=== PATIENT | male | born 1955 | race Caucasian/White ===

== ENCOUNTER 2020-02-10 14:29 | Emergency (ER) | payer BC, OTHER ==
[2020-02-10] MEDS ORDERED: NA CHLORIDE 0.9% 500 ML ONE (15:05)
[2020-02-10] MEDS ORDERED: MORPHINE 4 MG/ML SYR ONE (15:05)
[2020-02-10] MEDS ORDERED: ONDANSETRON 4 MG/2 ML VIAL ONE (15:05)
[2020-02-10 15:26] LABS: Absolute Lymphocytes (CBC) 0.9 K/uL (0.7-4.9); Basophils % 0.8 % (0-1.3); Hematocrit 42.7 % (39.6-49.0); Lymphocytes % 8.6 % (15.3-44.8)
[2020-02-10] MEDS ORDERED: PROMETHAZINE INJ 25 MG/ML AMP ONE (15:26)
[2020-02-10 15:49] LABS: ALT/SGPT 40 U/L (12-78); AST/SGOT 16 U/L (15-37); Albumin 4.3 g/dL (3.4-5.0); Alkaline Phosphatase 94 U/L (45-117); BUN Blood Urea Nitrogen 17 mg/dL (7-18); Bicarbonate 27 mmol/L (21-32); Bilirubin Direct 0.1 mg/dL (0-0.2); Bilirubin Total 0.4 mg/dL (0.2-1.0); Glucose Level 144 mg/dL (74-106); Lipase 52 U/L (73-393); Potassium 4.2 mmol/L (3.5-5.1); Protein, Total 8.8 g/dL (6.4-8.2); Sodium Level 139 mmol/L (136-145)
--- NOTE | 2020-02-10 16:23 | RAD REPORT ---
EXAM DESCRIPTION: CT - Stone Protocol - 02/10/2020 4:08 pm CLINICAL HISTORY: right flank pain COMPARISON: CT ABD PELVIS W CONTRAST dated 09/05/2014 TECHNIQUE: Axial [address] imaging of the abdomen and pelvis was performed without IV contrast. No IV contrast was given because of allergy, abnormal renal function, patient refusal or physician re quest. No oral contrast. All CT scans are performed using dose optimization technique as appropriate and may include automated exposure control or mA/KV adjustment according to patient size. FINDINGS: Motion degradation accentuates lung base interstitial pattern. No mass or consolidations s een. Cardiomegaly is present without pericardial effusion. The liver, spleen and pancreas show no suspicious findings on non-contrast imaging. Cholecystectomy c lips are present. No biliary tree dilatation. No hydronephrosis or suspicious renal mass. No significant adrenal finding. Isodense renal masses an d pyelonephritis cannot be excluded in the absence of IV contrast. The urinary bladder is without sig nificant finding. No significant prostate gland abnormality. No stomach or small bowel acute finding. Moderate stool volume present throughout the colon. Left-nancy ed diverticulosis present without diverticulitis. Small hiatal hernia present. No free air, free fluid or inflammatory stranding. No mass or bulky lymphadenopathy. Bilateral ingu inal hernias are present very minimal on the right and small on the left. Since 2014 patient has had repair of the periumbilical hernia. No herniation of bowel. No suspicious finding at the repair site. Disc and bony degenerative changes are present. No acute finding. IMPRESSION: Moderate stool volume throughout the colon with prominent left-sided diverticulosis. No diverticulitis or acute GI finding. No acute finding identifiable. Periumbilical hernia repair changes with no acute or worrisome finding at the repair site. Full assessment is limited is the absence of IV contrast.
[2020-02-10 16:29] LABS: Platelet Estimate ADEQ; White Blood Cell Scan OK (OK)
[2020-02-10 16:30] LABS: Blood Morphology Comment NOT SEEN (NOT SEEN)
[2020-02-10 16:50] LABS: Urine Blood TRACE (NEG); Urine Glucose NEGATIVE (NEG); Urine Protein 1+ (NEG); Urine Specific Gravity 1.025 (1.005-1.030); Urine pH 6.5 (5.0-7.0)
[2020-02-10 17:21] LABS: Urine Bacteria <20 /HPF (NONE SEEN); Urine Culture Reflex Order NOT NEEDED; Urine Mucus 2+ /HPF (NONE SEEN)
--- NOTE | 2020-02-10 17:32 | ER ---
Nurse's Notes [facility] Name: Lawrence Bustos Age: 64 yrs Sex: Male : 1955 Arrival Date: 02/10/2020 Time: 14:32 Bed 20 Private MD: Golden Melendez Diagnosis: Lower abdominal pain, unspecified;Nausea and vomiting Presentation: 02/09 14:42 Chief complaint: Patient states: Abdominal pain with N/V since 11am today. No known ll1 fever. Coronavirus screen: Client denies travel out of the [place] in the last 14 days. At this time, the client does not indicate any symptoms associated with coronavirus-19. Ebola Screen: Patient denies travel to an Ebola-affected area in the 21 days before illness onset. Initial Sepsis Screen: Does the patient meet any 2 criteria? No. Patient's initial sepsis screen is negative. Risk Assessment: Do you want to hurt yourself or someone else? Patient reports no desire to harm self or others. Onset of symptoms was February 10, 2020. 14:42 Method Of Arrival: Wheelchair ll1 14:42 Acuity: EDDIE 3 ll1 Historical: - Allergies: 14:43 No Known Drug Allergies; ll1 - Home Meds: 15:37 Metformin Oral [Active]; jl7 - PMHx: 15:37 Diabetes - NIDDM; jl7 - PSHx: 14:43 Hernia repair; ll1 - Immunization history:: Flu vaccine is up to date. - Social history:: Smoking status: Patient denies any tobacco usage or history of. Screenin:25 Abuse screen: Denies threats or abuse. Denies injuries from another. Nutritional jl7 screening: No deficits noted. Tuberculosis screening: No symptoms or risk factors identified. Fall Risk IV access (20 points). Total Chinchilla Fall Scale indicates No Risk (0-24 pts). Assessment: 15:00 General: Appears in no apparent distress. uncomfortable, ill, Behavior is calm, jl7 cooperative, appropriate for age. Pain: Complains of pain in right lower quadrant Pain radiates to pelvis Pain currently is 10 out of 10 on a pain scale. Pain began 4 hours ago. Is continuous. Neuro: Level of Consciousness is awake, alert, obeys commands, Oriented to person, place, time, situation. Cardiovascular: Denies chest pain. Respiratory: Airway is patent Respiratory effort is even, unlabored, Respiratory pattern is regular, symmetrical. GI: Abdomen is round non-distended, Bowel sounds present X 4 quads. Abd is soft Reports nausea, vomiting, Patient currently denies diarrhea. Derm: Skin is diaphoretic, Skin is normal, Skin temperature is cool. 16:00 Reassessment: Patient appears in no apparent distress at this time. Patient and/or jl7 family updated on plan of care and expected duration. Pain level reassessed. Patient is alert, oriented x 3, equal unlabored respirations, skin warm/dry/pink. Patient states feeling better. 17:00 Reassessment: Patient appears in no apparent distress at this time. No changes from jl7 previously documented assessment. Patient and/or family updated on plan of care and expected duration. Pain level reassessed. Patient is alert, oriented x 3, equal unlabored respirations, skin warm/dry/pink. Vital Signs: 14:42 BP 174 / 86; Pulse 66; Resp 18; Temp 98.1; Pulse Ox 96% on R/A; Pain 10/10; ll1 15:39 BP 156 / 88; Pulse 71; Resp 17 S; Pulse Ox 91% on R/A; jl7 16:32 BP 157 / 77; Pulse 61; Resp 18 S; Pulse Ox 96% on R/A; jl7 ED Course: 14:32 Patient arrived in ED. ag5 14:32 Golden Melendez MD is Private Physician. ag5 14:43 Triage completed. ll1 14:43 Arm band placed on Patient placed in an exam room, on a stretcher. ll1 14:46 Carson Miramontes PA is PHCP. cp 14:46 Josafat Lei MD is Attending Physician. cp 14:51 Kathleen Watson RN is Primary Nurse. jl7 15:00 Patient has correct armband on for positive identification. Placed in gown. Bed in low jl7 position. Call light in reach. Side rails up X 1. Pulse ox on. NIBP on. Warm blanket given. 15:05 Missed attempt(s): 20 gauge in right antecubital area. Bleeding controlled, band aid jl7 applied, catheter tip intact. 15:10 Missed attempt(s): 20 gauge in left antecubital area. Bleeding controlled, band aid jl7 applied, catheter tip intact. 15:15 Initial lab(s) drawn, by me, sent to lab. Inserted saline lock: 22 gauge in left hand, jl7 using aseptic technique. Blood collected. 16:08 CT Stone Protocol In Process Unspecified. EDMS 17:48 No provider procedures requiring assistance completed. IV discontinued, intact, jl7 bleeding controlled, No redness/swelling at site. Pressure dressing applied. Administered Medications: 15:10 Drug: NS 0.9% 500 ml Route: IV; Rate: bolus; Site: left hand; jl7 16:00 Follow up: Response: No adverse reaction; IV Status: Completed infusion; IV Intake: jl7 5000ml 15:10 Drug: Zofran (Ondansetron) 4 mg Route: IVP; Site: left hand; jl7 15:20 Follow up: Response: No adverse reaction; Nausea is decreased jl7 15:10 Drug: morphine 4 mg Route: IVP; Site: left hand; jl7 15:36 Follow up: Response: No adverse reaction; Pain is decreased jl7 15:23 Drug: Phenergan 25 mg Route: IVP; Site: left hand; jl7 15:45 Follow up: Response: No adverse reaction; Nausea is decreased jl7 Intake: 16:00 IV: 5000ml; Total: 5000ml. jl7 Outcome: 17:32 Discharge ordered by . kb 17:48 Discharged to home ambulatory. jl7 17:48 Condition: stable 17:48 Discharge instructions given to patient, Instructed on discharge instructions, follow up and referral plans. medication usage, Demonstrated understanding of instructions, follow-up care, medications, Prescriptions given X 2. 17:49 Patient left the ED. jl7 Signatures: Dispatcher [employer] EDMS Khloe Evans, PLANT DIRECTOR-C PLANT DIRECTOR-Ckb Carson Miramontes PA PA cp Leal, Jahala RN RN jl7 Lilo Granado ag5 Karol Chand, RN RN ll1
--- NOTE | 2020-02-10 17:32 | EDPHYS ---
Physician Documentation [facility] Name: Lawrence Bustos Age: 64 yrs Sex: Male : 1955 Arrival Date: 02/10/2020 Time: 14:32 Bed 20 Private MD: Golden Melendez ED Physician Josafat Lei HPI: 02/09 15:00 This 64 yrs old Male presents to ER via Wheelchair with complaints of cp Abdominal Pain, Vomiting. 15:00 The patient presents with abdominal pain right lower quadrant. Onset: The cp symptoms/episode began/occurred today, at 11:00. The symptoms radiate to right groin. Associated signs and symptoms: Pertinent positives: nausea, vomiting, Pertinent negatives: blood in stools, chest pain, constipation, diarrhea, fever. Severity of pain: in the emergency department the pain is unchanged despite home interventions. Historical: - Allergies: 14:43 No Known Drug Allergies; ll1 - Home Meds: 15:37 Metformin Oral [Active]; jl7 - PMHx: 15:37 Diabetes - NIDDM; jl7 - PSHx: 14:43 Hernia repair; ll1 - Immunization history:: Flu vaccine is up to date. - Social history:: Smoking status: Patient denies any tobacco usage or history of. ROS: 15:05 Constitutional: Negative for body aches, chills, fever, poor PO intake. cp 15:05 Eyes: Negative for injury, pain, redness, and discharge. cp 15:05 Cardiovascular: Negative for chest pain. 15:05 Respiratory: Negative for cough, shortness of breath, wheezing. 15:05 Abdomen/GI: Positive for abdominal pain, nausea and vomiting, Negative for diarrhea, constipation, anorexia, black/tarry stool, rectal bleeding. 15:05 Back: Negative for pain at rest, radiated pain. 15:05 : Negative for urinary symptoms. 15:05 Skin: Negative for rash. 15:05 Neuro: Negative for dizziness, weakness. 15:05 All other systems are negative. Exam: 15:10 Constitutional: The patient appears in no acute distress, alert, awake, non-toxic, well cp developed, well nourished, obese. 15:10 Head/Face: Normocephalic, atraumatic. cp 15:10 Eyes: Periorbital structures: appear normal, Conjunctiva: normal, no exudate, no injection, Sclera: no appreciated abnormality, Lids and lashes: appear normal, bilaterally. 15:10 ENT: External ear(s): are unremarkable, Nose: is normal, Mouth: Lips: moist, Oral mucosa: moist, Posterior pharynx: Airway: no evidence of obstruction, patent. 15:10 Chest/axilla: Inspection: normal, Palpation: is normal, no crepitus, no tenderness. 15:10 Cardiovascular: Rate: normal, Rhythm: regular. 15:10 Respiratory: the patient does not display signs of respiratory distress, Respirations: normal, no use of accessory muscles, no retractions, labored breathing, is not present, Breath sounds: are clear throughout, no decreased breath sounds. 15:10 Abdomen/GI: Inspection: obese Bowel sounds: active, all quadrants, Palpation: soft, in all quadrants, mild abdominal tenderness, in the right lower quadrant, rebound tenderness, is not appreciated, voluntary guarding, is not appreciated, involuntary guarding, is not appreciated. 15:10 Back: pain, is absent, ROM is normal. 15:10 Skin: cellulitis, is not appreciated, no rash present. 15:10 Neuro: Orientation: to person, place \T\ time. Mentation: is normal. Vital Signs: 14:42 BP 174 / 86; Pulse 66; Resp 18; Temp 98.1; Pulse Ox 96% on R/A; Pain 10/10; ll1 15:39 BP 156 / 88; Pulse 71; Resp 17 S; Pulse Ox 91% on R/A; jl7 16:32 BP 157 / 77; Pulse 61; Resp 18 S; Pulse Ox 96% on R/A; jl7 MDM: 14:47 Patient medically screened. cp 15:00 Differential diagnosis: appendicitis, bowel obstruction, cholecystitis, Cholelithiasis, cp diverticulitis, gastritis, non-specific abd pain, pancreatitis, Pyelonephritis, Testicular Torsion, Ureterolithiasis, urinary tract infection. 16:31 Data reviewed: vital signs, nurses notes, lab test result(s), radiologic studies, CT cp scan. ED course: Spoke with radiologist, DR Monterroso, CT scan of abdomen does not show signs of appendicitis. 02/09 14:49 Order name: Basic Metabolic Panel; Complete Time: 15:57 cp 02/09 15:57 Interpretation: Normal except: GLUC 144. cp 02/09 14:49 Order name: CBC with Diff; Complete Time: 16:30 cp 02/09 15:57 Interpretation: Normal except: LAKSHMI% 87.6; LYM% 8.6; MN% 2.8; NEUT A 9.5. cp 02/09 14:49 Order name: Hepatic Function; Complete Time: 15:57 cp 02/09 15:58 Interpretation: Normal except: TP 8.8; GLOB 4.5; A/G 1.0. cp 02/09 14:49 Order name: Lipase; Complete Time: 15:57 cp 02/09 14:49 Order name: Urine Microscopic Only; Complete Time: 17:32 cp 02/09 16:30 Order name: CBC Smear Scan; Complete Time: 16:30 EDMS 02/09 14:49 Order name: IV Saline Lock; Complete Time: 15:36 cp 02/09 14:49 Order name: Labs collected and sent; Complete Time: 15:36 cp 02/09 15:22 Order name: CT Stone Protocol; Complete Time: 16:30 cp 02/09 16:43 Order name: Urine Dipstick--Ancillary (enter results); Complete Time: 16:55 em1 02/09 14:49 Order name: Urine Dipstick-Ancillary (obtain specimen); Complete Time: 16:42 cp 02/09 16:31 Order name: PO challenge; Complete Time: 17:31 cp Administered Medications: 15:10 Drug: NS 0.9% 500 ml Route: IV; Rate: bolus; Site: left hand; jl7 16:00 Follow up: Response: No adverse reaction; IV Status: Completed infusion; IV Intake: jl7 5000ml 15:10 Drug: Zofran (Ondansetron) 4 mg Route: IVP; Site: left hand; jl7 15:20 Follow up: Response: No adverse reaction; Nausea is decreased jl7 15:10 Drug: morphine 4 mg Route: IVP; Site: left hand; jl7 15:36 Follow up: Response: No adverse reaction; Pain is decreased jl7 15:23 Drug: Phenergan 25 mg Route: IVP; Site: left hand; jl7 15:45 Follow up: Response: No adverse reaction; Nausea is decreased jl7 Disposition: 18:47 Co-signature as Attending Physician, Josafat Eli MD. rn Disposition: 02/10/20 17:32 Discharged to Home. Impression: Lower abdominal pain, unspecified, Nausea and vomiting. - Condition is Stable. - Discharge Instructions: Abdominal Pain, Adult, Nausea and Vomiting, Adult. - Prescriptions for Bentyl 20 mg Oral Tablet - take 1 tablet by ORAL route every 6 hours As needed; 20 tablet. promethazine 25 mg Oral Tablet - take 1 tablet by ORAL route every 6 hours As needed; 20 tablet. - Medication Reconciliation Form, Thank You Letter, Antibiotic Education, Prescription Opioid Use form. - Follow up: Private Physician; When: 1 - 2 days; Reason: Worsening of condition. - Problem is new. - Symptoms have improved. Signatures: Dispatcher [employer] EDMS Khloe Evans, MARINE ELECTRONICS TECHNICIAN-C MARINE ELECTRONICS TECHNICIAN-Ckb Josafat Lei MD MD rn Carson Miramontes PA PA cp Leal, Jahala RN RN jl7 Karol Chand RN RN ll1 Corrections: (The following items were deleted from the chart) 17:49 17:32 02/10/2020 17:32 Discharged to Home. Impression: Lower abdominal pain, jl7 unspecified; Nausea and vomiting. Condition is Stable. Discharge Instructions: Abdominal Pain, Adult, Nausea and Vomiting, Adult. Prescriptions for Bentyl 20 mg Oral Tablet - take 1 tablet by ORAL route every 6 hours As needed; 20 tablet, promethazine 25 mg Oral Tablet - take 1 tablet by ORAL route every 6 hours As needed; 20 tablet. and Forms are Medication Reconciliation Form, Thank You Letter, Antibiotic Education, Prescription Opioid Use. Follow up: Private Physician; When: 1 - 2 days; Reason: Worsening of condition. Problem is new. Symptoms have improved. kb
[2020-02-10 21:10] VITALS: TEMP 98.1
[2020-02-10 21:13] VITALS: BP 157/77; O2SAT 96
== END 2020-02-10 17:49 | disposition home or self-care (01) ==
LOC: ER 14:29
DX: R11.2 Nausea with vomiting, unspecified (principal); E11.9 Type 2 diabetes mellitus without complications
CPT/HCPCS: 96361; 85025; 80048; 36415; 80076; 83690; 76377; 74176; 96375; 96374; 99284; J2550; J7040; J2405; 81003; 81015

== ENCOUNTER 2021-03-12 23:17 | Emergency (ER) | payer OTHER ==
[2021-03-13] MEDS ORDERED: FLUORESCEIN SODIUM 1 MG/WRAP ONE (00:04)
[2021-03-13] MEDS ORDERED: TETRACAINE HCL 0.5% 4ML OPTH ONE (00:05)
--- NOTE | 2021-03-13 00:59 | EDPHYS ---
Physician Documentation [facility] Name: Lawrence Bustos Age: 65 yrs Sex: Male : 1955 Arrival Date: 03/12/2021 Time: 23:21 Bed 26 Private MD: ED Physician Carson Calvo HPI: 03/13 00:51 This 65 yrs old Male presents to ER via Ambulatory with complaints of Foreign last Body In Eye. 00:51 The patient sustained an abrasion, a burn, None. Onset: The symptoms/episode last began/occurred just prior to arrival. Duration: the symptoms are continuous. Aggravated by closing eye, opening eye, pressure, rubbing, Alleviated by nothing. Associated signs and symptoms: Pertinent positives: None. Pertinent negatives: None. Patient does not utilize any form of vision correction. Severity of symptoms: At their worst the symptoms were mild moderate in the emergency department the symptoms are unchanged. The patient has not experienced similar symptoms in the past. Historical: - Allergies: 03/12 23:43 No Known Allergies; lp1 - Home Meds: 23:43 None [Active]; lp1 - PMHx: 23:43 Diabetes - NIDDM; lp1 - PSHx: 23:43 Cholecystectomy; lp1 - Immunization history:: Adult Immunizations up to date. - Social history:: Smoking status: Patient denies any tobacco usage or history of. - Family history:: not pertinent. ROS: 03/13 00:51 Constitutional: Negative for fever, chills, and weight loss, ENT: Negative for injury, last pain, and discharge, Neck: Negative for injury, pain, and swelling, Cardiovascular: Negative for chest pain, palpitations, and edema, Respiratory: Negative for shortness of breath, cough, wheezing, and pleuritic chest pain, Abdomen/GI: Negative for abdominal pain, nausea, vomiting, diarrhea, and constipation, Back: Negative for injury and pain, : Negative for injury, bleeding, discharge, and swelling, MS/Extremity: Negative for injury and deformity, Skin: Negative for injury, rash, and discoloration, Neuro: Negative for headache, weakness, numbness, tingling, and seizure, Psych: Negative for depression, anxiety, suicide ideation, homicidal ideation, and hallucinations, Allergy/Immunology: Negative for hives, rash, and allergies, Endocrine: Negative for neck swelling, polydipsia, polyuria, polyphagia, and marked weight changes, Hematologic/Lymphatic: Negative for swollen nodes, abnormal bleeding, and unusual bruising. Eyes: Positive for foreign body sensation, pain, photophobia. Exam: 00:51 Constitutional: This is a well developed, well nourished patient who is awake, alert, last and in no acute distress. Head/Face: Normocephalic, atraumatic. ENT: Nares patent. No nasal discharge, no septal abnormalities noted. Tympanic membranes are normal and external auditory canals are clear. Oropharynx with no redness, swelling, or masses, exudates, or evidence of obstruction, uvula midline. Mucous membranes moist. Neck: Trachea midline, no thyromegaly or masses palpated, and no cervical lymphadenopathy. Supple, full range of motion without nuchal rigidity, or vertebral point tenderness. No Meningismus. Chest/axilla: Normal chest wall appearance and motion. Nontender with no deformity. No lesions are appreciated. Cardiovascular: Regular rate and rhythm with a normal S1 and S2. No gallops, murmurs, or rubs. Normal PMI, no JVD. No pulse deficits. Respiratory: Lungs have equal breath sounds bilaterally, clear to auscultation and percussion. No rales, rhonchi or wheezes noted. No increased work of breathing, no retractions or nasal flaring. Abdomen/GI: Soft, non-tender, with normal bowel sounds. No distension or tympany. No guarding or rebound. No evidence of tenderness throughout. Back: No spinal tenderness. No costovertebral tenderness. Full range of motion. Male : Normal genitalia with no discharge or lesions. Skin: Warm, dry with normal turgor. Normal color with no rashes, no lesions, and no evidence of cellulitis. MS/ Extremity: Pulses equal, no cyanosis. Neurovascular intact. Full, normal range of motion. Neuro: Awake and alert, GCS 15, oriented to person, place, time, and situation. Cranial nerves II-XII grossly intact. Motor strength 5/5 in all extremities. Sensory grossly intact. Cerebellar exam normal. Normal gait. Psych: Awake, alert, with orientation to person, place and time. Behavior, mood, and affect are within normal limits. 00:51 Eyes: Pupils: no acute changes, equal, round, and reactive to light and accomodation, Extraocular movements: intact throughout, Conjunctiva: normal, no chemosis, no excoriation, no exudate, no injection, no subconjunctival hemorrhage no abnormal tearing, Corneas: foreign body, on the right, at 6 o'clock, a fluorescein strip employed to appreciate the findings, Sclera: injected, Anterior chamber: normal, no acute changes, Lids and lashes: appear normal, no acute changes, Visual vega: are intact, no acute changes. Vital Signs: 03/12 23:41 BP 149 / 74; Pulse 78; Resp 18; Temp 97.5(TE); Pulse Ox 99% on R/A; Weight 113.4 kg lp1 (R); Height 6 ft. 0 in. (182.88 cm); Pain 8/10; 03/13 00:31 BP 142 / 75; Pulse 75; Resp 18; Pulse Ox 99% on R/A; df1 03/12 23:41 Body Mass Index 33.91 (113.40 kg, 182.88 cm) lp1 Visual Acuity: 00:14 Left Eye Visual acuity 20/50, Pupil size 3 mm, Normal, React To Light, Reactive To df1 Accomodation; Right Eye Visual acuity 20/50, Pupil size 3 mm, Normal, React To Light, Reactive To Accomodation; Both Eyes Visual acuity 20/50; Without Lenses; MDM: 03/12 23:33 Patient medically screened. [facility] 03/12 23:34 Order name: Eye Tray; Complete Time: 23:42 [facility] 03/13 00:51 Order name: Misc. Order: patch to right; Complete Time: 00:57 [facility] Administered Medications: 03/13 00:56 Drug: Tobramycin Ointment (0.3 %) 1 application Route: Ophthalmic; Site: right eye; df1 00:57 Drug: Tetracaine Drops 0.5 % 1 drops Route: Ophthalmic; Site: right eye; df1 01:01 Drug: [place] (HYDROcodone-acetaminophen) 10 mg-325 mg 1 tabs {Note: Per provider [place] df1 to be taken at home..} Route: PO; 01:15 Drug: Tetanus-Diphtheria Toxoid Adult 0.5 ml {Customer Service Trainer: [employer]. Exp: df1 10/15/2022. Lot #: [id number]. } Route: IM; Site: left deltoid; Disposition Summary: 03/13/21 00:59 Discharge Ordered Location: Home last Problem: new last Symptoms: have improved last Condition: Stable last Diagnosis - Foreign body in cornea, right eye - removed last Followup: last - With: Ar Fong MD - When: Today - Reason: Recheck today's complaints, Continuance of care, Re-evaluation by your physician Discharge Instructions: - Discharge Summary Sheet last - Corneal Abrasion last - Eye Foreign Body last - Corneal Abrasion, [id number] last - Eye Foreign Body, [id number] last Forms: - Medication Reconciliation Form last - Thank You Letter last - Antibiotic Education last - Prescription Opioid Use last Prescriptions: - Tobrex 0.3 % Ophthalmic ointment - apply 1 inch ribbon by OPHTHALMIC route 4 times per day; 3.5 gram; Refills: 0, last Product Selection Permitted Signatures: Carson Calvo MD MD cha Pena, Laura RN RN lp1 Bette Luo df1
--- NOTE | 2021-03-13 00:59 | ER ---
Nurse's Notes [facility] Name: Lawrence Bustos Age: 65 yrs Sex: Male : 1955 Arrival Date: 03/12/2021 Time: 23:21 Bed 26 Private MD: Diagnosis: Foreign body in cornea, right eye-removed Presentation: 03/12 23:41 Chief complaint: Patient states: Right eye pain, redness for the last couple hours; lp1 reports painting in garage earlier today, may have been exposed to dust. Coronavirus screen: At this time, the client does not indicate any symptoms associated with coronavirus-19. Ebola Screen: No symptoms or risks identified at this time. Initial Sepsis Screen: Does the patient meet any 2 criteria? No. Patient's initial sepsis screen is negative. Does the patient have a suspected source of infection? No. Patient's initial sepsis screen is negative. Risk Assessment: Do you want to hurt yourself or someone else? Patient reports no desire to harm self or others. Onset of symptoms was March 12, 2021. 23:41 Method Of Arrival: Ambulatory lp1 23:41 Acuity: EDDIE 4 lp1 Historical: - Allergies: 23:43 No Known Allergies; lp1 - Home Meds: 23:43 None [Active]; lp1 - PMHx: 23:43 Diabetes - NIDDM; lp1 - PSHx: 23:43 Cholecystectomy; lp1 - Immunization history:: Adult Immunizations up to date. - Social history:: Smoking status: Patient denies any tobacco usage or history of. - Family history:: not pertinent. Screenin:43 Abuse screen: Denies threats or abuse. Denies injuries from another. Nutritional lp1 screening: No deficits noted. Tuberculosis screening: No symptoms or risk factors identified. Fall Risk None identified. Assessment: 03/13 00:24 General: Appears in no apparent distress. Behavior is calm, cooperative. Pain: df1 Complains of pain in right eye. Neuro: No deficits noted. Cardiovascular: No deficits noted. Respiratory: No deficits noted. GI: No deficits noted. : No deficits noted. EENT: No deficits noted. Derm: No deficits noted. Musculoskeletal: No deficits noted. Vital Signs: 03/12 23:41 BP 149 / 74; Pulse 78; Resp 18; Temp 97.5(TE); Pulse Ox 99% on R/A; Weight 113.4 kg lp1 (R); Height 6 ft. 0 in. (182.88 cm); Pain 8/10; 03/13 00:31 BP 142 / 75; Pulse 75; Resp 18; Pulse Ox 99% on R/A; df1 03/12 23:41 Body Mass Index 33.91 (113.40 kg, 182.88 cm) lp1 Visual Acuity: 00:14 Left Eye Visual acuity 20/50, Pupil size 3 mm, Normal, React To Light, Reactive To df1 Accomodation; Right Eye Visual acuity 20/50, Pupil size 3 mm, Normal, React To Light, Reactive To Accomodation; Both Eyes Visual acuity 20/50; Without Lenses; ED Course: 03/12 23:21 Patient arrived in ED. wm 23:33 Carson Calvo MD is Attending Physician. last 23:42 Bette Luo is Primary Nurse. df1 23:42 Triage completed. lp1 23:42 Arm band placed on. lp1 03/13 00:11 Patient has correct armband on for positive identification. Bed in low position. Call df1 light in reach. 00:32 Assist provider with eye exam of right eye. df1 00:55 Assist provider with eye exam using slit lamp, Performed by Carson Calvo MD Dressed df1 with eye patch Patient tolerated well. 00:58 Ar Fong MD is Referral Physician. last 01:20 Patient did not have IV access during this emergency room visit. df1 Administered Medications: 00:56 Drug: Tobramycin Ointment (0.3 %) 1 application Route: Ophthalmic; Site: right eye; df1 00:57 Drug: Tetracaine Drops 0.5 % 1 drops Route: Ophthalmic; Site: right eye; df1 01:01 Drug: [place] (HYDROcodone-acetaminophen) 10 mg-325 mg 1 tabs {Note: Per provider [place] df1 to be taken at home..} Route: PO; 01:15 Drug: Tetanus-Diphtheria Toxoid Adult 0.5 ml {Manager Concrete: [facility]. Exp: df1 10/15/2022. Lot #: [id number]. } Route: IM; Site: left deltoid; Outcome: 00:59 Discharge ordered by . last 01:20 Discharged to home ambulatory. df1 01:20 Condition: good 01:20 Discharge instructions given to patient, Instructed on discharge instructions, follow up and referral plans. medication usage, Demonstrated understanding of instructions, follow-up care, medications, Prescriptions given X 1. 01:20 Patient left the ED. df1 Signatures: Carson Calvo MD MD cha Pena, Laura, RN RN lp1 Ira Moore Dawn df1
[2021-03-13] MEDS ORDERED: TOBRAMYCIN SULF 0.3% OPTH OINT ONE (01:08)
[2021-03-13] MEDS ORDERED: CYCLOPENTOLATE 2% OPTH 2 ML ONE (01:08)
[2021-03-13] MEDS ORDERED: HYDROCODONE/APAP 5/325 MG TAB ONE (01:24)
[2021-03-13] MEDS ORDERED: HYDROCODONE/APAP 10/325 TAB ONE (01:29)
[2021-03-13] MEDS ORDERED: TETANUS & DIPHTHERIA TOX,ADULT 0.5 ML VIAL ONE (01:29)
[2021-03-13 01:33] VITALS: TEMP 97.5; O2SAT 99
[2021-03-13 01:34] VITALS: BP 142/75
== END 2021-03-13 01:20 | disposition home or self-care (01) ==
LOC: ER 23:17
PROC: 08C8XZZ Extirpation of Matter from Right Cornea, External Approach (ICD-10-PCS; principal; 2021-03-12)
DX: T15.01XA Foreign body in cornea, right eye, initial encounter (principal); E11.9 Type 2 diabetes mellitus without complications; Z90.49 Acquired absence of other specified parts of digestive tract; Z23 Encounter for immunization
CPT/HCPCS: 90471; 90714; 99283

== ENCOUNTER 2021-04-01 17:51 | Emergency (ER) | payer OTHER ==
[2021-04-01] MEDS ORDERED: GLUCAGON 1 MG/VIAL ONE ×2 (18:30→20:34)
[2021-04-01] MEDS ORDERED: WATER FOR INJ,STERILE 10 ML ONE (18:30)
--- NOTE | 2021-04-01 19:51 | RAD REPORT ---
EXAM DESCRIPTION: RAD - Neck Soft Tissue - 04/01/2021 6:45 pm CLINICAL HISTORY: FB, not otherwise specified COMPARISON: None. TECHNIQUE: Single lateral soft tissue neck exam performed. FINDINGS: No prevertebral soft tissue thickening. No foreign body or abnormal air density. Epiglotti s is normal. Tonsillar and adenoid tissue within normal limits as well. Advanced mid and lower cerv ical spine degenerative change spanning C4-C7. The disc spaces are narrowed with endplate spurring ch anges. Normal thyroid cartilage calcifications are present. IMPRESSION: No foreign body is distinguishable from the above detailed anatomic structures.
--- NOTE | 2021-04-01 20:46 | EDPHYS ---
Physician Documentation [facility] Name: Lawrence Bustos Age: 65 yrs Sex: Male : 1955 Arrival Date: 04/01/2021 Time: 17:52 Bed 4 Private MD: ED Physician Alma Devlin HPI: 04/01 20:51 This 65 yrs old Male presents to ER via Ambulatory with complaints of Foreign kb Body In Throat - candy. 20:51 The patient or guardian reports the patient has a suspected foreign body, that has been kb ingested. The reported likely foreign body is "sticky candy". Onset: The symptoms/episode began/occurred 1.5 hour(s) ago. Current symptoms: foreign body sensation. Treatment Prior to Arrival: none. The patient has not experienced similar symptoms in the past. The patient has not recently seen a physician. Pt states he ate some sticky candy and feels like it is stuck in esophagus. States he has tried drinking fluids to push it down, but he it comes back up. Historical: - Allergies: 18:03 No Known Allergies; aa5 - PMHx: 18:03 Diabetes - NIDDM; aa5 - PSHx: 18:03 Cholecystectomy; aa5 - Immunization history:: Client reports receiving the 2nd dose of the Covid vaccine. - Social history:: Smoking status: Patient denies any tobacco usage or history of. ROS: 20:51 Constitutional: Negative for fever, chills, and weight loss. kb 20:51 ENT: Positive for foreign body sensation. 20:51 All other systems are negative. Exam: 20:51 Constitutional: This is a well developed, well nourished patient who is awake, alert, kb and in no acute distress. Head/Face: Normocephalic, atraumatic. ENT: Moist Mucous membranes Cardiovascular: Regular rate and rhythm with a normal S1 and S2. No gallops, murmurs, or rubs. No pulse deficits. Respiratory: Respirations even and unlabored. No increased work of breathing, no retractions or nasal flaring. Skin: Warm, dry with normal turgor. Normal color. MS/ Extremity: Pulses equal, no cyanosis. Neurovascular intact. Full, normal range of motion. Neuro: Awake and alert, GCS 15, oriented to person, place, time, and situation. Moves all extremities. Normal gait. Psych: Awake, alert, with orientation to person, place and time. Behavior, mood, and affect are within normal limits. Vital Signs: 17:54 BP 168 / 87; Pulse 78; Resp 20 S; Temp 98.0(TE); Pulse Ox 98% on R/A; Weight 117.93 kg aa5 (R); Height 6 ft. 1 in. (185.42 cm) (R); Pain 0/10; 18:42 BP 120 / 93; Pulse 80; Resp 16; Pulse Ox 99% on R/A; ap3 19:30 BP 171 / 83; Pulse 70; Resp 19; Temp 97.9; Pulse Ox 96% on R/A; Pain 2/10; dc2 21:09 BP 150 / 80; Pulse 72; Resp 18; Pulse Ox 96% on R/A; Pain 0/10; df1 17:54 Body Mass Index 34.30 (117.93 kg, 185.42 cm) aa5 MDM: 17:55 Patient medically screened. kb 20:50 Data reviewed: vital signs, nurses notes. Data interpreted: Pulse oximetry: on room air kb is 96 %. Interpretation: normal. 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 ED course: Pt states he believes the candy is moving down. Pt is now able to tolerate PO intake and would like to go home. Resp even and unlabored. Pt denies shortness of breath. 04/01 18:01 Order name: Neck Soft Tissue XRAY; Complete Time: 19:57 kb 04/01 18:00 Order name: IV Start; Complete Time: 18:42 kb Administered Medications: 18:42 Drug: Glucagon 1 mg Route: IVP; Site: right forearm; ap3 19:30 Follow up: Response: Pain is unchanged, physician notified dc2 20:11 Drug: GlucaGen (glucagon) 1 mg Route: IVP; Site: right antecubital; dc2 20:28 Follow up: Response: Marked relief of symptoms dc2 Disposition Summary: 04/01/21 20:45 Discharge Ordered Location: Home kb Condition: Stable kb Diagnosis - Foreign body in esophagus kb Followup: kb - With: Emergency Department - When: As needed - Reason: Worsening of condition Followup: kb - With: Private Physician - When: 2 - 3 days - Reason: Recheck today's complaints, Continuance of care, Re-evaluation by your physician Discharge Instructions: - Discharge Summary Sheet kb - Swallowed Foreign Body, Adult, [id number] kb Forms: - Medication Reconciliation Form kb - Thank You Letter kb - Antibiotic Education kb - Prescription Opioid Use kb Addendum: 04/04/2021 23:01 Co-signature as Attending Physician, Alma Devlin MD PA/STATUE MAKER's history reviewed, m a2 patient interviewed, and examined. I agree with assessment and care plan and confirm the diagnosis (es) above. Signatures: Dispatcher [employer] EDMS Khloe Evans, CORPORATE STRATEGY ASSOCIATE-C CORPORATE STRATEGY ASSOCIATE-Beckb Atiya Simmons, RN RN aa5 Alma Devlin MD MD ma2 Jennifer Gates RN RN ap3 Yana Luis RN RN dc2
--- NOTE | 2021-04-01 20:46 | ER ---
Nurse's Notes [facility] Name: Lawrence Bustos Age: 65 yrs Sex: Male : 1955 Arrival Date: 04/01/2021 Time: 17:52 Bed 4 Private MD: Diagnosis: Foreign body in esophagus Presentation: 04/01 17:54 Chief complaint: Patient states: "I was chewing on sticky candy and now it's stuck on aa5 my throat about 1 1/2 hr ago" No respiratory distress noted, no drooling noted. 17:54 Coronavirus screen: At this time, the client does not indicate any symptoms associated aa5 with coronavirus-19. Ebola Screen: No symptoms or risks identified at this time. Initial Sepsis Screen: Does the patient meet any 2 criteria? No. Patient's initial sepsis screen is negative. Does the patient have a suspected source of infection? No. Patient's initial sepsis screen is negative. Risk Assessment: Do you want to hurt yourself or someone else? Patient reports no desire to harm self or others. Onset of symptoms was April 01, 2021. 17:54 Acuity: EDDIE 2 aa5 17:54 Method Of Arrival: Ambulatory aa5 21:10 Note Pt drank 2 soda with a straw. Pt states he "feels like to piece of food is gone df1 from his throat". LC CTA. Resp even and unlabored. No distress noted. Historical: - Allergies: 18:03 No Known Allergies; aa5 - PMHx: 18:03 Diabetes - NIDDM; aa5 - PSHx: 18:03 Cholecystectomy; aa5 - Immunization history:: Client reports receiving the 2nd dose of the Covid vaccine. - Social history:: Smoking status: Patient denies any tobacco usage or history of. Screenin:06 Abuse screen: Denies threats or abuse. Nutritional screening: No deficits noted. aa5 Tuberculosis screening: No symptoms or risk factors identified. Fall Risk None identified. Assessment: 17:55 General: Appears comfortable, Behavior is calm, cooperative. Pain: Denies pain. Neuro: aa5 Level of Consciousness is awake, alert, obeys commands, Oriented to person, place, time, situation. Cardiovascular: Patient's skin is warm and dry. Respiratory: Airway is patent Respiratory effort is even, unlabored, Respiratory pattern is regular, symmetrical, Breath sounds are clear bilaterally. Denies shortness of breath. GI: Abdomen is obese, Patient currently denies nausea, vomiting. : No signs and/or symptoms were reported regarding the genitourinary system. EENT: Reports feeling of FB in throat . Derm: Skin is pink, warm \\T\\ dry. 19:13 Reassessment: Patient and/or family updated on plan of care and expected duration. Pain ap3 level reassessed. Patient is alert, oriented x 3, equal unlabored respirations, skin warm/dry/pink. 19:30 Reassessment: PT return from bathroom, Pt given soda to drink with straw. Denies sharp dc2 pain or SOB , states can just feel something but does report feels like it may be moving down. Pt appears anxious . 19:44 Reassessment: Pt calls out to ask for another dain samanta, states feels like it is dc2 helping feel better, additional soda given, NAD noted, continue to monitor. 20:28 Reassessment: Pt reports feels that issue has been resolved and is in no discomfort at dc2 this time. Vital Signs: 17:54 BP 168 / 87; Pulse 78; Resp 20 S; Temp 98.0(TE); Pulse Ox 98% on R/A; Weight 117.93 kg aa5 (R); Height 6 ft. 1 in. (185.42 cm) (R); Pain 0/10; 18:42 BP 120 / 93; Pulse 80; Resp 16; Pulse Ox 99% on R/A; ap3 19:30 BP 171 / 83; Pulse 70; Resp 19; Temp 97.9; Pulse Ox 96% on R/A; Pain 2/10; dc2 21:09 BP 150 / 80; Pulse 72; Resp 18; Pulse Ox 96% on R/A; Pain 0/10; df1 17:54 Body Mass Index 34.30 (117.93 kg, 185.42 cm) aa5 ED Course: 17:52 Patient arrived in ED. as 17:54 Arm band placed on Patient placed in an exam room, on a stretcher. aa5 17:55 Khloe Evans FNP-C is [facility]. kb 17:55 Alma Devlin MD is Attending Physician. kb 17:55 Simmons, Atiya, RN is Primary Nurse. aa5 17:55 Patient has correct armband on for positive identification. Bed in low position. Call aa5 light in reach. Side rails up X2. Pulse ox on. NIBP on. 18:03 Triage completed. aa5 18:42 Inserted saline lock: 22 gauge in right forearm, using aseptic technique. ap3 18:45 Neck Soft Tissue XRAY In Process Unspecified. EDMS 19:10 Report given to JOSEFINA Amos and JSOEFINA Millan. aa5 20:29 No provider procedures requiring assistance completed. dc2 21:26 IV discontinued, intact, bleeding controlled, No redness/swelling at site. Pressure df1 dressing applied. Administered Medications: 18:42 Drug: Glucagon 1 mg Route: IVP; Site: right forearm; ap3 19:30 Follow up: Response: Pain is unchanged, physician notified dc2 20:11 Drug: GlucaGen (glucagon) 1 mg Route: IVP; Site: right antecubital; dc2 20:28 Follow up: Response: Marked relief of symptoms dc2 Outcome: 20:45 Discharge ordered by . kb 21:25 Discharged to home ambulatory. df1 21:25 Condition: good 21:25 Instructed on discharge instructions, follow up and referral plans. Demonstrated understanding of instructions, follow-up care. 21:26 Patient left the ED. df1 Signatures: Dispatcher [employer] EDMS Khloe Evans, CLIMBING GUIDE-C CLIMBING GUIDE-Meliza Cabrera as Atiya Simmons, RN RN aa5 Jennifer Gates RN RN ap3 Bette Luo df1 Yana Luis RN RN dc2
[2021-04-01 21:35] VITALS: TEMP 97.9; O2SAT 96
[2021-04-01 21:36] VITALS: BP 150/80
== END 2021-04-01 21:26 | disposition home or self-care (01) ==
LOC: ER 17:51
DX: T18.128A Food in esophagus causing other injury, initial encounter (principal); E11.9 Type 2 diabetes mellitus without complications
CPT/HCPCS: 70360; 99284; J1610 ×2

== ENCOUNTER 2021-04-01 23:35 | Emergency (ER) | payer OTHER ==
[2021-04-02 00:15] LABS: Absolute Lymphocytes (CBC) 1.1 K/uL (0.7-4.9); Basophils % 0.6 % (0-1.3); Hematocrit 42.2 % (39.6-49.0); Lymphocytes % 10.3 % (15.3-44.8); RBC Red Blood Cell Count 4.66 M/uL (4.33-5.43)
[2021-04-02 00:23] LABS: BUN Blood Urea Nitrogen 11 mg/dL (7-18); Bicarbonate 27 mmol/L (21-32); Glucose Level 140 mg/dL (74-106); Potassium 3.9 mmol/L (3.5-5.1); Sodium Level 136 mmol/L (136-145)
[2021-04-02] MEDS ORDERED: NA CHLORIDE 0.9% 0 ML ONE (00:30)
[2021-04-02] MEDS ORDERED: ONDANSETRON 4 MG/2 ML VIAL ONE ×3 (00:30→02:45)
[2021-04-02] MEDS ORDERED: MORPHINE 4 MG/ML SYR ONE ×2 (00:30→00:31)
[2021-04-02] MEDS ORDERED: NA CHLORIDE 0.9% 1,000 ML ONE (00:31)
[2021-04-02 01:30] LABS: Urine Blood Negative (Negative); Urine Glucose Negative (Negative); Urine Protein Trace (Negative); Urine Specific Gravity 1.025 (1.005-1.030); Urine pH 7.5 (5.0-7.0)
[2021-04-02] MEDS ORDERED: FENTANYL CITR 100 MCG/2 ML ONE ×2 (01:37→02:40)
--- NOTE | 2021-04-02 02:58 | ER ---
Nurse's Notes [facility] Name: Lawrence Bustos Age: 65 yrs Sex: Male : 1955 Arrival Date: 04/01/2021 Time: 23:39 Bed 16 Private MD: Diagnosis: Right groin pain Presentation: 04/01 23:43 Acuity: EDDIE 4 cc4 23:43 Chief complaint: EMS states: he c/o nausea treated with phenergan 12.5 mg IV enroute; cc4 c/o vague right lower abdominal discomfort that reportedly then went to right hip area down into right leg; reported being here earlier for same complaints. Coronavirus screen: Vaccine status: At this time, the client does not indicate any symptoms associated with coronavirus-19. Ebola Screen: Patient negative for fever greater than or equal to 101.5 degrees Fahrenheit, and additional compatible Ebola Virus Disease symptoms No symptoms or risks identified at this time. Initial Sepsis Screen: Does the patient meet any 2 criteria? No. Patient's initial sepsis screen is negative. Initial Sepsis Screen: Does the patient meet any 2 criteria? No. Patient's initial sepsis screen is negative. Does the patient have a suspected source of infection? No. Patient's initial sepsis screen is negative. Risk Assessment: Do you want to hurt yourself or someone else? Patient reports no desire to harm self or others. Onset of symptoms was April 01, 2021 at 19:00. 23:43 Method Of Arrival: EMS: [facility] cc4 23:45 Care prior to arrival: Medication(s) given: Phenergan, 12.5 mg. 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 Historical: - Allergies: 23:43 No Known Allergies; cc4 - PMHx: 04/02 03:41 right groin pain; nausea; cc4 - Immunization history:: Adult Immunizations unknown. - Social history:: Patient/guardian denies using tobacco products, Patient/guardian denies using tobacco products, Smoking status: unknown. Screenin:53 Abuse screen: Denies threats or abuse. Nutritional screening: No deficits noted. bb Tuberculosis screening: No symptoms or risk factors identified. Fall Risk None identified. Assessment: 04/01 23:43 General: Appears uncomfortable, Behavior is calm, cooperative. Pain: Complains of pain cc4 in right groin Pain radiates to right leg Pain Quality of pain is described as crampy, Pain began Before I left here about 5 hours ago. Neuro: No deficits noted. Level of Consciousness is awake, alert, obeys commands, Oriented to person, place, time, situation. Cardiovascular: Denies chest pain. Respiratory: No deficits noted. Airway is patent Respiratory effort is unlabored, Breath sounds are clear bilaterally. GI: No deficits noted. Abdomen is obese, Bowel sounds present X 4 quads. Abd is soft and non tender X 4 quads. : Denies burning with urination, inability to void, incontinence. EENT: No deficits noted. Eyes clear. Nares are clear Oral mucosa is dry. Derm: No deficits noted. Skin is intact. Musculoskeletal: No deficits noted. Capillary refill < 3 seconds, Range of motion: intact in all extremities. 04/02 00:14 Reassessment: Patient appears in no apparent distress at this time. c/o right groin cc4 pain 10/10 on pain scale with nausea; IV NS hung to saline lock right wrist \\T\\ infusing \\T\\ open rate with no s/sx's of infiltration noted; medicated for pain \\T\\ nausea(see orders); stretcher down; SR's up x 2; in \\T\\ bedside ; voiding with no stated difficulty clear dominguez yellow urine with dipstick done. 01:10 Reassessment: Awakened from sleep per technical training instructor \\T\\ refuses to go to CT unless he receives cc4 "something for pain"; Leighann Evans NP notified with new order received; not \\T\\ bedside; Fentanyl 50 mcg given slow IVP with technical training instructor taking pt to CT. Pain: Complains of pain in right groin Pain radiates to right leg Pain currently is 8 out of 10 on a pain scale. 01:35 Reassessment: Patient appears in no apparent distress at this time. Returned from CT cc4 via stretcher; Dozing intermittently; reports pain "About the same"; will con't to monitor. 02:20 Reassessment: Patient appears in no apparent distress at this time. Pain: Complains of cc4 pain in right groin Pain radiates to right leg Pain currently is 5 out of 10 on a pain scale. at worst was 10 out of 10 on a pain scale. level that patient reports is acceptable is 0 out of 10 on a pain scale. Quality of pain is described as crampy. Neuro: Level of Consciousness is awake, alert, Oriented to person, place, time, situation. 02:20 Respiratory: No deficits noted. Airway is patent Respiratory effort is unlabored, KRebeca cc4 ALEIDA Evans notified with new order received; fentanyl 25 mcg given slow IVP; requesting medication for nausea. 02:25 Reassessment: Patient appears in no apparent distress at this time. Leighann Evans NP cc4 notified of request for nausea with new oder received; Zofran 4 mg given slow IVP; no vomiting noted. Vital Signs: 04/01 23:43 BP 166 / 77; Pulse 63; Resp 20; Temp 97.7(O); Pulse Ox 95% on R/A; oe 04/02 00:11 BP 132 / 56; Pulse 74; Resp 20; Pulse Ox 95% on R/A; cc4 00:53 BP 132 / 105; Pulse 66; Resp 20; Pulse Ox 96% on R/A; cc4 02:13 BP 143 / 65; Pulse 71; Resp 18; Pulse Ox 95% on R/A; cc4 02:15 BP 142 / 67; Pulse 65; Resp 18; Pulse Ox 96% on R/A; cc4 02:21 BP 142 / 66; Pulse 70; Resp 16; Pulse Ox 89% on R/A; cc4 02:30 BP 162 / 76; Pulse 60; Resp 18; Pulse Ox 95% on R/A; cc4 02:45 BP 146 / 67; Pulse 59; Resp 18; Pulse Ox 100% on R/A; cc4 03:00 BP 144 / 62; Pulse 73; Resp 18; Pulse Ox 100% on R/A; cc4 ED Course: 04/01 23:39 Patient arrived in ED. tt3 23:41 Khloe Evans FNP-C [facility]. kb 23:41 Kamlesh Enciso MD is Attending Physician. kb 23:43 Arm band placed on right wrist. cc4 04/02 00:03 Inserted saline lock: 20 gauge in right forearm, using aseptic technique. Blood oe collected. 00:51 Basic Metabolic Panel Sent. bb 00:53 Patient has correct armband on for positive identification. Bed in low position. Call bb light in reach. Side rails up X 1. Pulse ox on. NIBP on. 01:06 Sara Hanley, JOSEFINA is Primary Nurse. cc4 01:36 CT Abd/Pelvis - IV Contrast Only In Process Unspecified. EDMS 03:00 No provider procedures requiring assistance completed. cc4 03:00 IV discontinued, intact, bleeding controlled, No redness/swelling at site. Pressure cc4 dressing applied. 03:36 Triage completed. cc4 Administered Medications: 00:14 Drug: Zofran (Ondansetron) 4 mg Route: IVP; Site: right forearm; fu 01:10 Follow up: Response: No adverse reaction; Nausea is decreased cc4 00:14 Drug: NS 0.9% 1000 ml Route: IV; Rate: 1000 ml; Site: right forearm; fu 00:51 Follow up: Response: No adverse reaction; IV Status: Completed infusion; IV Intake: bb 1000ml 01:10 Follow up: Urine output 600 ml; Response: No adverse reaction; IV Status: Completed cc4 infusion; IV Intake: 1000ml 00:15 Drug: morphine 4 mg Route: IVP; Site: right forearm; fu 00:51 Follow up: Response: Pain is unchanged, physician notified bb 01:10 Follow up: Response: No adverse reaction; Pain is unchanged, physician notified cc4 01:10 Drug: fentaNYL (PF) 50 mcg Route: IVP; Site: right wrist; cc4 01:40 Follow up: Response: No adverse reaction; Pain is decreased cc4 02:20 Drug: fentaNYL (PF) 25 mcg Route: IVP; Site: right wrist; cc4 03:00 Follow up: Response: No adverse reaction; Pain is decreased cc4 02:25 Drug: Zofran (Ondansetron) 4 mg Route: IVP; Site: right wrist; cc4 03:00 Follow up: Response: No adverse reaction; Nausea is decreased cc4 03:00 Drug: Flexeril (cyclobenzaprine) 10 mg Route: PO; cc4 03:00 Follow up: Response: No adverse reaction cc4 03:00 Drug: Ketorolac 30 mg Route: IVP; Site: right wrist; cc4 03:00 Follow up: Response: No adverse reaction cc4 Intake: 00:51 IV: 1000ml; Total: 1000ml. bb 01:10 IV: 1000ml; Total: 2000ml. cc4 Output: 01:10 Urine: 600ml; Total: 600ml. cc4 Outcome: 02:57 Discharge ordered by MD. rojas 03:00 Discharged to home with . cc4 03:00 Condition: improved 03:00 Discharge instructions given to patient, \\T\\ . Instructed on discharge instructions, follow up and referral plans. medication usage, Demonstrated understanding of instructions, follow-up care, medications, Prescriptions given X 2. 03:59 Patient left the ED. cc4 Signatures: Dispatcher [employer] EDMS Khloe Evans, NGOZI GARCIA-Rabia Patten RN RN bb Espinosa, Orlando oe Umadhay, Felix, RN RN Kyaw Vásquez 3 Sara Hanley RN RN cc4 Corrections: (The following items were deleted from the chart) 03:11 04/01 23:43 General: Appears uncomfortable, Behavior is calm, cooperative, cc4 cc4 04/02 03:11 04/01 23:43 Pain: cc4 cc4 04/02 03:42 04/01 23:43 PMHx: Diabetes - NIDDM; cc4 cc4 04/02 03:42 04/01 23:43 PSHx: Cholecystectomy; cc4 cc4
--- NOTE | 2021-04-02 02:58 | EDPHYS ---
Physician Documentation [facility] Name: Lawrence Bustos Age: 65 yrs Sex: Male : 1955 Arrival Date: 04/01/2021 Time: 23:39 Bed 16 Private MD: ED Physician Kamlesh Enciso HPI: 04/02 00:51 This 65 yrs old Male presents to ER via Unassigned with complaints of kb RLQ/groin pain. 00:51 The patient presents with abdominal pain right lower quadrant. Onset: The kb symptoms/episode began/occurred just prior to arrival. The symptoms do not radiate. Associated signs and symptoms: Pertinent positives: nausea and vomiting. The symptoms are described as constant. Modifying factors: The symptoms are alleviated by nothing, the symptoms are aggravated by movement. Severity of pain: At its worst the pain was moderate severe in the emergency department the pain is unchanged. The patient has experienced a previous episode, states "they couldn't find anything, I went home and slept for 2 days and the pain was gone.". The patient has been recently seen at the [facility] Emergency Department, today, by me, for unrelated complaints, seen for foreign body in throat (candy), resolved. Pt states he left here after being treated for FB in esophagus and started having RLQ/groin pain then nausea and vomiting. . Historical: - Allergies: 04/01 23:43 No Known Allergies; cc4 - PMHx: 04/02 03:41 right groin pain; nausea; cc4 - Immunization history:: Adult Immunizations unknown. - Social history:: Patient/guardian denies using tobacco products, Patient/guardian denies using tobacco products, Smoking status: unknown. ROS: 00:52 Constitutional: Negative for fever, chills, and weight loss. kb 00:52 Abdomen/GI: Positive for abdominal pain, nausea and vomiting, Negative for diarrhea, constipation. 00:52 All other systems are negative. Exam: 00:52 Constitutional: This is a well developed, well nourished patient who is awake, alert, kb and in no acute distress. Head/Face: Normocephalic, atraumatic. ENT: Moist Mucous membranes Respiratory: Respirations even and unlabored. No increased work of breathing, no retractions or nasal flaring. Abdomen/GI: Soft, non-tender. No distention Skin: Warm, dry with normal turgor. Normal color. MS/ Extremity: Pulses equal, no cyanosis. Neurovascular intact. Full, normal range of motion. Neuro: Awake and alert, GCS 15, oriented to person, place, time, and situation. Moves all extremities. Normal gait. Psych: Awake, alert, with orientation to person, place and time. Behavior, mood, and affect are within normal limits. Vital Signs: 04/01 23:43 BP 166 / 77; Pulse 63; Resp 20; Temp 97.7(O); Pulse Ox 95% on R/A; oe 04/02 00:11 BP 132 / 56; Pulse 74; Resp 20; Pulse Ox 95% on R/A; cc4 00:53 BP 132 / 105; Pulse 66; Resp 20; Pulse Ox 96% on R/A; cc4 02:13 BP 143 / 65; Pulse 71; Resp 18; Pulse Ox 95% on R/A; cc4 02:15 BP 142 / 67; Pulse 65; Resp 18; Pulse Ox 96% on R/A; cc4 02:21 BP 142 / 66; Pulse 70; Resp 16; Pulse Ox 89% on R/A; cc4 02:30 BP 162 / 76; Pulse 60; Resp 18; Pulse Ox 95% on R/A; cc4 02:45 BP 146 / 67; Pulse 59; Resp 18; Pulse Ox 100% on R/A; cc4 03:00 BP 144 / 62; Pulse 73; Resp 18; Pulse Ox 100% on R/A; cc4 MDM: 04/01 23:41 Patient medically screened. kb 04/02 00:51 Data reviewed: vital signs, nurses notes. Data interpreted: Pulse oximetry: on room air kb is 95 %. Interpretation: normal. 02:50 Counseling: I had a detailed discussion with the patient and/or guardian regarding: the kb historical points, exam findings, and any diagnostic results supporting the discharge/admit diagnosis, lab results, radiology results, the need for outpatient follow up, a family practitioner, to return to the emergency department if symptoms worsen or persist or if there are any questions or concerns that arise at home. ED course: Pt reports pain feels like a pulled muscle in the groin. No abd tenderness, no tenderness on exam of groin area. No testicular pain. No urinary symptoms. 04/01 23:41 Order name: Basic Metabolic Panel kb 04/01 23:41 Order name: CBC with Diff; Complete Time: 00:18 kb 04/01 23:41 Order name: CT Abd/Pelvis - IV Contrast Only kb 04/01 23:42 Order name: Basic Metabolic Panel; Complete Time: 00:24 EDMS 04/02 01:30 Order name: Urine Dipstick-Ancillary; Complete Time: 01:35 EDMS 04/01 23:41 Order name: IV Saline Lock; Complete Time: 00:51 kb 04/01 23:41 Order name: Labs collected and sent; Complete Time: 00:51 kb 04/02 00:53 Order name: Urine Dipstick-Ancillary (obtain specimen); Complete Time: 02:05 kb Administered Medications: 00:14 Drug: Zofran (Ondansetron) 4 mg Route: IVP; Site: right forearm; fu 01:10 Follow up: Response: No adverse reaction; Nausea is decreased cc4 00:14 Drug: NS 0.9% 1000 ml Route: IV; Rate: 1000 ml; Site: right forearm; fu 00:51 Follow up: Response: No adverse reaction; IV Status: Completed infusion; IV Intake: bb 1000ml 01:10 Follow up: Urine output 600 ml; Response: No adverse reaction; IV Status: Completed cc4 infusion; IV Intake: 1000ml 00:15 Drug: morphine 4 mg Route: IVP; Site: right forearm; fu 00:51 Follow up: Response: Pain is unchanged, physician notified bb 01:10 Follow up: Response: No adverse reaction; Pain is unchanged, physician notified cc4 01:10 Drug: fentaNYL (PF) 50 mcg Route: IVP; Site: right wrist; cc4 01:40 Follow up: Response: No adverse reaction; Pain is decreased cc4 02:20 Drug: fentaNYL (PF) 25 mcg Route: IVP; Site: right wrist; cc4 03:00 Follow up: Response: No adverse reaction; Pain is decreased cc4 02:25 Drug: Zofran (Ondansetron) 4 mg Route: IVP; Site: right wrist; cc4 03:00 Follow up: Response: No adverse reaction; Nausea is decreased cc4 03:00 Drug: Flexeril (cyclobenzaprine) 10 mg Route: PO; cc4 03:00 Follow up: Response: No adverse reaction cc4 03:00 Drug: Ketorolac 30 mg Route: IVP; Site: right wrist; cc4 03:00 Follow up: Response: No adverse reaction cc4 Disposition: 04:46 Co-signature as Attending Physician, Kamlesh Enciso MD. [email or web address] Disposition Summary: 04/02/21 02:57 Discharge Ordered Location: Home kb Condition: Stable kb Diagnosis - Right groin pain kb Followup: kb - With: Emergency Department - When: As needed - Reason: Worsening of condition Followup: kb - With: Private Physician - When: 2 - 3 days - Reason: Recheck today's complaints, Continuance of care, Re-evaluation by your physician Discharge Instructions: - Discharge Summary Sheet kb - Muscle Strain, [id number] kb Forms: - Medication Reconciliation Form kb - Thank You Letter kb - Antibiotic Education kb - Prescription Opioid Use kb Prescriptions: - Cyclobenzaprine 10 mg Oral Tablet - take 1 tablet by ORAL route every 8 hours As needed; 21 tablet; Refills: 0, kb Product Selection Permitted - Diclofenac Sodium 75 mg Oral tablet,delayed release (DR/EC) - take 1 tablet by ORAL route 2 times per day As needed; 30 tablet; Refills: 0, kb Product Selection Permitted Signatures: Dispatcher [employer] EDKhloe Burr FNP-C FNP-Ckb Umadhay, Felix, RN Kamlesh Alex MD MD 7 Sara Hanley RN RN 4 Rabia Diaz RN bb Corrections: (The following items were deleted from the chart) 02:49 00:52 Constitutional: This is a well developed, well nourished patient who is awake, kb alert, and in no acute distress. Head/Face: Normocephalic, atraumatic. ENT: Moist Mucous membranes Respiratory: Respirations even and unlabored. No increased work of breathing, no retractions or nasal flaring. Skin: Warm, dry with normal turgor. Normal color. MS/ Extremity: Pulses equal, no cyanosis. Neurovascular intact. Full, normal range of motion. Neuro: Awake and alert, GCS 15, oriented to person, place, time, and situation. Moves all extremities. Normal gait. Psych: Awake, alert, with orientation to person, place and time. Behavior, mood, and affect are within normal limits. kb 02:50 00:51 The patient has not experienced similar symptoms in the past, kb kb 03:42 04/01 23:43 PMHx: Diabetes - NIDDM; cc4 cc4 04/02 03:42 04/01 23:43 PSHx: Cholecystectomy; cc4 cc4
[2021-04-02 04:07] VITALS: TEMP 97.7
[2021-04-02 04:17] VITALS: O2SAT 100
[2021-04-02 04:18] VITALS: BP 144/62
[2021-04-02] MEDS ORDERED: CYCLOBENZAPRINE 10 MG TAB ONE (04:20)
[2021-04-02] MEDS ORDERED: KETOROLAC 30 MG/ML INJ ONE (04:20)
--- NOTE | 2021-04-02 19:02 | RAD REPORT ---
EXAM DESCRIPTION: CT - Abdomen Pelvis W Contrast - 04/02/2021 6:24 am CLINICAL HISTORY: ABD PAIN COMPARISON: None. TECHNIQUE: CT ABDOMEN PELVIS WITH IV CONTRAST on 04/01/2021 11:41 PM CDT This exam was performed according to our departmental dose-optimization program, which includes autom ated exposure control, adjustment of the mA and/or kV according to patient size and/or use of iterati ve reconstruction technique. FINDINGS: There is mild bibasilar atelectasis. There is mild thickening of the distal esophagus. The heart is enlarged. Abdomen: The liver is normal in appearance. There is no biliary dilatation. Cholecystectomy was perfo rmed. The pancreas and spleen are normal in appearance. The adrenal glands and kidneys are unremarkab le. Abdominal aorta is normal in course and caliber without aneurysm. There is no free air. There is no r etroperitoneal adenopathy. Pelvis: There is severe diverticulosis of the distal colon. Urinary bladder is unremarkable. There is no free fluid. Appendix is normal. Skeleton: There are no acute osseous findings. No suspicious bony lesions. IMPRESSION: Distal colonic diverticulosis without diverticulitis. Electronically signed by: Clarence Womack MD 04/02/2021 2:45 AM CDT Due to temporary technical issues with the PACS/Fluency reporting system, reports are being signed by the in house radiologists without review as a courtesy to insure prompt reporting. The interpreting radiologist is fully responsible for the content of the report.
== END 2021-04-02 03:59 | disposition home or self-care (01) ==
LOC: ER 23:35
DX: R10.31 Right lower quadrant pain (principal)
CPT/HCPCS: 85025; 80048; 36415; 81003; 74177; 99284; Q9967; J3010 ×2; J7030; J2405 ×2

== ENCOUNTER 2022-05-25 05:13 | Emergency (ER) | payer MEDICARE ==
[~2022-05-25 05:13] MED LIST: NA CHLORIDE 0.9% 1,000 ML ONE
--- OUTSIDE RECORDS SUMMARY | 2022-05-25 05:17 | XMS REPORT | Continuity of Care Document ---
:1955 Author Organization [facility] t Address [address] [place] [place] [address] Care Team Providers Name Role Phone Pcp, Patient Does Not Have A Primary Care Physician [phone] Scott Craig Attending Clinician Unavailable Vaccine, [place] Pedi Attending Clinician Unavailable Gabe Dunaway MD Attending Clinician GABE DUNAWAY Attending Clinician Unavailable Jennifer Azevedo MD Attending Clinician Chandler Ramirez Attending Clinician [phone] CHANDLER GARCIA Attending Clinician Unavailable Nurse, Adc Pob Immunization Attending Clinician Unavailable Gopal Spring DO Attending Clinician EMILY NAYAK Attending Clinician Unavailable MD EMILY NAYAK Attending Clinician Unavailable DONAVAN COLON Attending Clinician Unavailable Pcp, Patient Does Not Have A Attending Clinician [phone]- [phone] SURAJ LAKE Attending Clinician Unavailable EMILY NAYAK Admitting Clinician Unavailable MD EMILY NAYAK Admitting Clinician Unavailable ALEIDA VANEGAS Admitting Clinician Unavailable Payers Payer Name Policy Type Policy Number Effective Date Expiration Date S amy [employer] [facility] [place] [facility] [id number] 2018 OF STATE 1 00:00:00 [facility] [id number] 2021 (MEDICARE 00:00:00 REPLACEMENT HMO) Problems Condition Condition Condition Status Onset Resolution Last Treating Co mments Source Name Details Category Date Date Treatment Clinician Date [id number] Other Problem Common chronic [facility] pain [facility] [id number] Neuropathy Problem Co mmon [facility] [id number] Tinnitus Problem Com mon 102 of both [facility] ears - [facility] [id number] Body mass Problem Com mon index Spirit [BMI] - [facility] 36.0-36.9, [facility] [id number] Morbid Problem Commo n 9104 (severe) Spirit obesity - [facility] due to [facility] [id number] Mixed Problem Common hyperlipid Spirit emia - [facility] [id number] Erectile Problem Comm on dysfunctio Spirit n, - [facility] unspecifie [facility] erectile [facility] dysfunctio Medica n type Center No known No known Disease Unive rs active active ity of problems problems [facility] Allergies, Adverse Reactions, Alerts Allergy Allergy Status Severity Reaction(s) Onset Inactive Treating Comm ents Source Name Type Date Date Clinician NO KNOWN Drug Active Univers ALLERGIE Class ity of S [facility] Social History Social Habit Start Date Stop Date Quantity Comments Source History of Tobacco [facility] Exposure to 2022-02-07 2022-02-17 Not sure University SARS-CoV-2 (event) 00:00:00 15:01:00 [facility] Alcohol intake 2021-02-02 2021-02-02 Current drinker [facility] 00:00:00 00:00:00 of alcohol Hospital (finding) Cigarettes smoked 2021-01-27 2021-01-[address] current (pack per 00:00:00 00:00:00 Hospita l day) - Reported Cigarette 2021-01-27 2021-01-27 [facility] pack-years 00:00:00 00:00:00 Hospital Alcohol Comment 2021-01-04 2021-01-04 rare [facility] 00:00:00 00:00:00 Hospital Tobacco use and 2020-07-13 2020-07-13 Smokeless Universit y of exposure 00:00:00 00:00:00 tobacco non-user [facility] Sex Assigned At [birth year] [facility] 00:00:00 00:00:00 Hospital Smoking Status Start Date Stop Date Source Former Smoker 2022-03-03 00:00:00 2022-03-03 00:00:00 [facility] Medications Ordered Filled Start Stop Current Ordering Indication Dosage Frequency Signature Comments Components Source Medication Medication Date Date Medication? Clinician (SIG) Name Name Gabapentin Gabapentin No 1{capsu TID Gabapentin 100 MG 100 MG 9-27 le_as_n 100 MG 00:00: eeded} Gabapentin Gabapentin 2021- No 1{capsu TID Gabapentin 100 MG 100 MG 9-27 le_as_n 100 MG 00:00: eeded} gabapentin 2021- Yes [id number] 100mg Take 1 Univers 100 mg 9-16 capsule by ity of capsule 00:00: mouth in [place] [address] the Medical morning Branch and 1 capsule at noon and 1 capsule in the evening. gabapentin 2021- Yes [id number] 100mg Take 1 Univers 100 mg 9-16 capsule by ity of capsule 00:00: mouth in [place] [address] the Medical morning Branch and 1 capsule at noon and 1 capsule in the evening. estradiol 2021-0 Yes Univers valerate 20 8-08 ity of mg/mL 00:00: [place] injection Medical Branch estradiol 2021-0 Yes Univers valerate 20 8-08 ity of mg/mL 00:00: [place] injection Medical Branch tadalafiL 5 2021-0 Yes TAKE 1 Univ ers mg tablet 8-05 TABLET BY ity o f 00:00: MOUTH [place] EVERY DAY Medical FOR 30 Branch DAYS tadalafiL 5 2021-0 Yes TAKE 1 Univ ers mg tablet 8-05 TABLET BY ity o f 00:00: MOUTH [place] [address] EVERY DAY Medical FOR 30 Branch DAYS Tadalafil 5 Tadalafil 5 2021-2021- No 1{table QD Tadalafil MG MG -03-07 t} 5 MG 00:00: 00:00 00 :00 Tadalafil 5 Tadalafil 5 2021-0 2021- No 1{table QD Tadalafil MG MG -03-07 t} 5 MG 00:00: 00:00 00 :00 Tadalafil 5 Tadalafil 5 2021-0 2021- No 1{table QD Tadalafil MG MG -03-07 t} 5 MG 00:00: 00:00 00 :00 Tadalafil 5 Tadalafil 5 2021-2021- No 1{table QD Tadalafil MG MG 01-06 t} 5 MG 00:00: 00:00 00 :00 hydrOXYzine 2020-0 Yes 50mg Take 50 mg Univers 50 mg 8-19 by mouth. ity of tablet 00:00: [place] [facility] hydrOXYzine 2020-0 Yes 50mg Take 50 mg Univers 50 mg 8-19 by mouth. ity of tablet 00:00: [place] [facility] hydrOXYzine 0 Yes 50mg QD Take 50 mg Methodi (ATARAX) 50 8-[address] MG tablet 00:00: nightly. Hosp dave 00 l SERTraline 0 Yes 100mg Take 100 Un sonu 100 mg 8-12 mg by ity of tablet 00:00: mouth. [place] [facility] SERTraline 0 Yes 100mg Take 100 Un sonu 100 mg 8-12 mg by ity of tablet 00:00: mouth. [place] [facility] sertraline 0 Yes 100mg QD Take 100 Me thodi (ZOLOFT) 8-[address] 100 MG 00:00: mouth Hospita tablet 00 daily. l spironolact 0 Yes 50mg Take 50 mg Univers one 50 mg 8-03 by mouth. ity o f tablet 00:00: [place] [facility] spironolact 2020-0 Yes 50mg Take 50 mg Univers one 50 mg 8-03 by mouth. ity o f tablet 00:00: [place] [facility] spironolact 2020-0 Yes 50mg QD Take 50 mg Methodi one 8-[address] (ALDACTONE) 00:00: daily. Hosp dave 50 MG 00 l tablet No known No Univers medications - ity of 11:16: [address] benzonatate 2020-2020- No [id number] 100mg Take 1 Univers (TESSALON 07-13 capsule by ity briseyda PORTILLO) 100 00:00: 05:59 mouth [place] capsule [place] :00 (three) Medica l times Branch daily for 14 days. azithromyci 2020- No [id number] 250mg Take 1 Univers n 07-13 tablet by ity of (ZITHROMAX 00:00: 05:59 mouth [place] Z-LIANE) 250 00 :00 daily for Medi oseas mg tablet 5 days. Branch Take 500 mg day 1, then 250 mg days 2 to 5. Gabapentin Gabapentin No Gabapentin 100 MG 100 MG 100 MG Tadalafil 5 Tadalafil 5 No Tadalafil MG MG 5 MG Gabapentin Gabapentin No Gabapentin 100 MG 100 MG 100 MG Tadalafil 5 Tadalafil 5 No Tadalafil MG MG 5 MG Immunizations Ordered Filled Immunization Date Status Comments [facility] Immunization Name Name SARS-COV-2 COVID-19 2022-03-31 Completed Unive rsity of ROE-SUCROSE 00:00:00 [place] Medica l VACCINE 12 YRS+, Branch BIVALENT 0.3ML, IM, (PFIZER [place] TOP BOOSTER) Shingrix Shingrix 2021-08-16 Completed [facility] 14:21:00 [facility] Shingrix Shingrix 2021-08-16 Completed [facility] - 14:21:00 [facility] Shingrix Shingrix 2021-08-16 Completed [facility] - 14:21:00 [facility] Shingrix Shingrix 2021-08-16 Completed [facility] - 14:21:00 [facility] Shingrix Shingrix 2021-08-16 Completed [facility] - 14:21:00 [facility] Shingrix Shingrix 2021-08-16 Completed [facility] - 14:21:00 [facility] Shingrix Shingrix 2021-08-16 Completed [facility] - 14:21:00 [facility] Shingrix Shingrix 2021-08-16 Completed [facility] - 14:21:00 [facility] Shingrix Shingrix 2021-08-16 Completed [facility] - 14:21:00 [facility] Shingrix Shingrix 2021-08-16 Completed [facility] - 14:21:00 [facility] Shingrix Shingrix 2021-08-16 Completed [facility] - 14:21:00 [facility] Pneumovax (PPSV23) Pneumovax (PPSV23) 2021-08-16 Completed [facility] - 14:19:00 [facility] Pneumovax (PPSV23) Pneumovax (PPSV23) 2021-08-16 Completed [facility] - 14:19:00 [facility] Pneumovax (PPSV23) Pneumovax (PPSV23) 2021-08-16 Completed [facility] - 14:19:00 [facility] Pneumovax (PPSV23) Pneumovax (PPSV23) 2021-08-16 Completed [facility] 14:19:00 [facility] Pneumovax (PPSV23) Pneumovax (PPSV23) 2021-08-16 Completed [facility] - 14:19:00 [facility] Pneumovax (PPSV23) Pneumovax (PPSV23) 2021-08-16 Completed [facility] - 14:19:00 [facility] Pneumovax (PPSV23) Pneumovax (PPSV23) 2021-08-16 Completed [facility] - 14:19:00 [facility] Pneumovax (PPSV23) Pneumovax (PPSV23) 2021-08-16 Completed [facility] - 14:19:00 [facility] Pneumovax (PPSV23) Pneumovax (PPSV23) 2021-08-16 Completed [facility] 14:19:00 [facility] Pneumovax (PPSV23) Pneumovax (PPSV23) 2021-08-16 Completed [facility] - 14:19:00 [facility] Pneumovax (PPSV23) Pneumovax (PPSV23) 2021-08-16 Completed [facility] - 14:19:00 [facility] SARS-COV-2 COVID-19 2021-03-30 Completed Unive rsity of PFIZER VACCINE 00:00:00 [facility] SARS-COV-2 COVID-19 2021-03-30 Completed Unive rsity of PFIZER VACCINE 00:00:00 [facility] SARS-COV-2 COVID-19 2021-03-30 Completed Unive rsity of PFIZER VACCINE 00:00:00 [facility] SARS-COV-2 COVID-19 2020-08-16 Completed Unive rsity of PFIZER VACCINE 00:00:00 [facility] SARS-COV-2 COVID-19 2020-08-16 Completed Unive rsity of PFIZER VACCINE 00:00:00 [facility] SARS-COV-2 COVID-19 2020-08-16 Completed Unive rsity of PFIZER VACCINE 00:00:00 [facility] SARS-COV-2 COVID-19 2020-07-26 Completed Unive rsity of PFIZER VACCINE 00:00:00 [facility] SARS-COV-2 COVID-19 2020-07-26 Completed Unive rsity of PFIZER VACCINE 00:00:00 [facility] SARS-COV-2 COVID-19 2020-07-26 Completed Unive rsity of PFIZER VACCINE 00:00:00 [facility] Vital Signs Vital Name Observation Time Observation Value Comments Source height 2022-03-08 11:30:00 73.00 [in_i] [facility] weight 2022-03-08 11:30:00 270 [lb_av] [facility] temperature 2022-03-08 11:30:00 98.5 [degF] [facility] bmi 2022-03-08 11:30:00 35.62 kg/m2 [facility] blood pressure 2022-03-08 11:30:00 142 mm[Hg] [facility] systolic [facility] blood pressure 2022-03-08 11:30:00 70 mm[Hg] [facility] diastolic [facility] height 2022-02-28 09:20:00 73.00 [in_i] [facility] weight 2022-02-28 09:20:00 282 [lb_av] [facility] temperature 2022-02-28 09:20:00 97.5 [degF] [facility] bmi 2022-02-28 09:20:00 37.2 kg/m2 [facility] oximetry 2022-02-28 09:20:00 96 % [facility] respiratory rate 2022-02-28 09:20:00 17 /min Comm on [facility] blood pressure 2022-02-28 09:20:00 150 mm[Hg] [facility] - systolic [facility] blood pressure 2022-02-28 09:20:00 71 mm[Hg] [facility] - diastolic [facility] Systolic blood 2022-02-17 20:04:00 156 mm[Hg] Univer sity of [facility] Diastolic blood 2022-02-17 20:04:00 76 mm[Hg] Unive rsity of [facility] Heart rate 2022-02-17 20:02:00 60 /min [facility] Body temperature 2022-02-17 20:02:00 36.72 Urmila [facility] 2022-02-17 20:02:00 18 /min [facility] Body height 2022-02-17 20:02:00 185.4 cm [facility] Body weight 2022-02-17 20:02:00 127.325 kg [facility] BMI 2022-02-17 20:02:00 37.03 kg/m2 [facility] Oxygen saturation in 2022-02-17 20:02:00 98 /min [facility] Arterial blood by [facility] Pulse oximetry Branch temperature 2022-01-06 07:40:00 98 [degF] Common S pirit [facility] bmi 2022-01-06 07:40:00 36.28 kg/m2 Common S [facility] blood pressure 2022-01-06 07:40:00 134 mm[Hg] [facility] - systolic [facility] blood pressure 2022-01-06 07:40:00 70 mm[Hg] [facility] diastolic [facility] height 2022-01-06 07:40:00 73.00 [in_i] [facility] weight 2022-01-06 07:40:00 275 [lb_av] Common [facility] height 2021-08-16 13:40:00 73.00 [in_i] [facility] weight 2021-08-16 13:40:00 274.2 [lb_av] [facility] temperature 2021-08-16 13:40:00 98.2 [degF] [facility] bmi 2021-08-16 13:40:00 36.17 kg/m2 [facility] oximetry 2021-08-16 13:40:00 96 % [facility] respiratory rate 2021-08-16 13:40:00 17 /min Comm on [facility] blood pressure 2021-08-16 13:40:00 132 mm[Hg] [facility] systolic [facility] blood pressure 2021-08-16 13:40:00 76 mm[Hg] [facility] diastolic [facility] Procedures Procedure Date / Time Performed Performing Clinician Sourc e SARS-COV-2 COVID-19 2022-03-31 14:51:57 Doctor Unassigned, No Un iversity [facility] [place] ROE-SUCROSE VACCINE Name Medical Bra [facility] 10 YRS+, BIVALENT 0.3ML, IM, (PFIZER [place] TOP BOOSTER) SARS-COV-2 COVID-19 2021-03-30 14:52:31 Doctor Unassigned, No [facility] [place] VACCINE,0.3ML,IM Name Medical Branch (PFIZER) Plan of Care Planned Activity Planned Date Details Comments Source Future Scheduled 2022-05-15 Hepatitis C screening [facility] Test 22:32:02 (procedure) [code = 341365320] Future Scheduled 2022-05-15 COLONOSCOPY SCREENING [facility] Test 22:32:02 [code = COLONOSCOPY SCREENING] Future Scheduled 2022-05-15 SHINGLES VACCINES (1 [facility] Test 22:32:02 of 2) [code = SHINGLES VACCINES (1 of 2)] Future Scheduled 2022-05-15 65+ PNEUMOCOCCAL Methodi [facility] Test 22:32:02 VACCINE (1 - PCV) [code = 65+ PNEUMOCOCCAL VACCINE (1 - PCV)] Future Scheduled 2022-05-15 COVID-19 [facility] 22:32:02 Booster for Pfizer series) [code = COVID-19 VACCINE (3 - Booster for Pfizer series)] Future Scheduled 2022-05-15 INFLUENZA VACCINE Method [facility] Test 22:32:02 [code = INFLUENZA VACCINE] Encounters Start End Encounter Admission Attending Care Care Encounter Source Date/Time Date/Time Type Type Clinicians Facility Department ID 2022-03-08 Outpatient Craig, [facility] [id number] Common 10:59:02 Scott [facility] 2022-02-28 Outpatient Craig, [facility] [id number] Common 09:10:02 Scott [facility] 2021-08-16 Outpatient Craig, [facility] [id number] Common 13:31:03 Scott [facility] 2022-03-31 2022-03-31 Imm/Inj Vaccine, [facility] JACOB [id number] Univers 09:20:00 09:30:00 Visit Gabe Dunaway 350.1.13.10 ity of PEDIATRIC 4.2.7.2.686 [facility] [phone] [address] 2022-03-31 2022-03-31 Outpatient R GABE DUNAWAY [facility] [id number] Univers 09:20:00 09:20:00 ity of [facility] 2022-03-08 2022-03-08 [facility] [id number] Co mmon 00:00:00 00:00:00 VISIT EST Spir it PT LEVEL 3 [facility] 2022-02-28 2022-02-28 OFFICE STLC STLC [id number] Co mmon 00:00:00 00:00:00 VISIT EST Spir it PT LEVEL 3 [facility] 2022-02-21 2022-02-21 (TEL) [facility] [id number] Co mmon 00:00:00 00:00:00 [facility] 2022-02-17 2022-02-17 Urgent Jennifer Azevedo [facility] [id number] Univers 15:20:00 15:20:00 Patricia Garcia Clarkwilfred [facility] [id number] .10 [facility] [id number] Rao as PRASHANTH?BLEA [phone] [address] MEDICAL OFFICE BUILDING 2022-02-17 2022-02-17 Outpatient Chirag GARCIA [facility] [id number] Univers 15:20:00 15:16:40 CHANDLER [facility] 2022-02-17 2022-02-17 (TEL) STLMLC STLMLC [id number] Co mmon 00:00:00 00:00:00 [facility] 2022-01-06 2022-01-06 OFFICE STLMLC STLC [id number] Co mmon 00:00:00 00:00:00 VISIT [facility] LEVEL 4 [facility] 2021-12-16 2021-12-16 [id number] [facility] 06:09:00 06:09:00 0715 Medica l Group 2021-11-16 2021-11-16 (TEL) STLMLC STLMLC [id number] Co mmon 00:00:00 00:00:00 [facility] 2021-08-29 2021-08-29 (TEL) STLMLC STLMLC [id number] Co mmon 00:00:00 00:00:00 [facility] 2021-08-16 2021-08-16 PREV VISIT STLMLC STLMLC [id number] Common 00:00:00 00:00:00 NEW AGE 63 Spi rit & OVER [facility] 2021-04-07 2021-04-07 [place] [id number] [facility] 08:00:00 08:00:00 1104 Medica l Group 2021-03-30 2021-03-30 Outpatient [facility] [id number] Univers 10:10:00 10:10:00 [facility] 2021-03-30 2021-03-30 Imm/Inj Nurse, Adc Pob Immunization [facility] [id number] Univers 09:51:22 09:52:03 Visit Gopal Spring [place] 350.1.13 .10 ity of [place] 4.2.7.2.686 Raoissa ludwig Zamarripa [id number] [place] dical nal 421 [facility] 2021-01-31 2021-01-31 Outpatient MALINI, [facility] [id number] [place] 00:00:00 00:00:00 EDWARD 289 Method i 2021-01-27 2021-01-27 Outpatient MALINI [facility] [id number] [place] 00:00:00 00:00:00 EDWARD 337 Method i 2021-01-10 2021-01-10 [facility] [id number] [place] 00:00:00 00:00:00 EDWARD 376 Method i 2021-01-05 2021-01-05 Outpatient MALINI [facility] [id number] [place] 00:00:00 00:00:00 EDWARD 665 Method i 2020-08-16 2020-08-16 Outpatient Chirag COLON [facility] [id number] Univers 07:50:00 07:50:00 [facility] 2020-07-26 2020-07-26 [facility] [id number] Univers 08:00:00 08:00:00 DONAVAN [facility] 2020-07-16 2020-07-16 Telephone Pcp, [facility] [id number] Univers 00:00:00 00:00:00 Patient Health 350.1.13.10 it y of Does Not Surgical [place].2.686 [place] [id number] [place] dical es [address] [place] 2020-07-13 2020-07-13 Outpatient Chirag [place] [facility] [id number] Univers 10:40:00 12:12:41 SURAJ thrasher [facility] Results Test Description Test Time Test Comments Results Result Comments Source SARS-CoV-2 (COVID-19) RNA [Presence] in Respiratory sp ecimen by 2021-01-27 11:49:11 MAHESH with probe detection Test Item Value Reference Range Interpretation Comme nts SARS-CoV-2 (COVID-19) RNA [Presence] in Respiratory Not detected No t-Detected specimen by MAHESH with probe detection (test code = 74578-2) Whether patient is employed in a healthcare setting (test code = 18121-5) Whether the patient has symptoms related to condition of interest (test code = 10931-8) Patient was hospitalized because of this condition (test code = 92964-1) Whether the patient was admitted to intensive care unit (ICU) for condition of interest (test code = 17564-7) Whether patient resides in a congregate care setting (test code = 68804-1) QUENTIN JAVIERRS-CoV-2 (COVID-19) RNA [Presence] in Respiratory specimen by MAHESH with probe [id number] 12:43:50 Test Item Value Reference Range Interpretation Comments SARS-CoV-2 (COVID-19) RNA Not detected Not-Detected [Presence] in Respiratory specimen by MAHESH with probe detection (test code = 51366-3) Whether patient is employed in a healthcare setting (test code = 46214-5) Whether the patient has symptoms related to condition of interest (test code = 18115-4) Patient was hospitalized because of this condition (test code = 15396-5) Whether the patient was admitted to intensive care unit (ICU) for condition of interest (test code = 98395-1) Whether patient resides in a congregate care setting (test code = 26670-9) QUENTIN GUAJARDO
[2022-05-25] MEDS ORDERED: ONDANSETRON 4 MG/2 ML VIAL ONE (05:38)
[2022-05-25] MEDS ORDERED: MORPHINE 4 MG/ML SYR ONE ×3 (05:38→07:43)
[2022-05-25] MEDS ORDERED: NA CHLORIDE 0.9% 1,000 ML ONE (05:39)
[2022-05-25 06:06] LABS: Albumin 3.8 g/dL (3.4-5.0); Bilirubin Total 0.4 mg/dL (0.2-1.0); Magnesium 1.9 mg/dL (1.6-2.4); Protein, Total 8.1 g/dL (6.4-8.2); Troponin High Sensitivity 7.2 pg/mL (<58.9)
[2022-05-25] MEDS ORDERED: KETOROLAC 30 MG/ML INJ ONE (06:26)
[2022-05-25 06:28] LABS: Absolute Lymphocytes (CBC) 0.9 K/uL (0.7-4.9); Hematocrit 38.5 % (39.6-49.0); Lymphocytes % 10.6 % (15.3-44.8); MCV 91.3 fL (80-100); MPV 8.1 fL (7.6-11.3); RBC Red Blood Cell Count 4.21 M/uL (4.33-5.43)
[2022-05-25 07:19] LABS: Urine Blood Trace-intact (Negative); Urine Glucose Negative (Negative); Urine Protein 2+ (Negative); Urine Specific Gravity 1.025 (1.005-1.030)
[2022-05-25 07:30] LABS: Urine Bacteria None Seen /HPF (<20); Urine Mucus Slight /HPF (None Seen)
[2022-05-25] MEDS ORDERED: METOCLOPRAMIDE 10 MG/2mL INJ ONE (07:43)
--- NOTE | 2022-05-25 08:13 | RAD REPORT ---
EXAM DESCRIPTION: CTAbdomen Pelvis W Contrast - 05/25/2022 6:54 am CLINICAL HISTORY: Abdominal pain. R sided groin and lower back pain COMPARISON: No comparisonsAbdomen Pelvis W Contrast dated 04/02/2021; CT ABD PELVIS W CONTRAST myesha ed 09/05/2014 TECHNIQUE: Biphasic CT imaging of the abdomen and pelvis was performed with 100 ml non-ionic IV cont rast. All CT scans are performed using dose optimization technique as appropriate and may include automated exposure control or mA/KV adjustment according to patient size. FINDINGS: Emphysematous lung bases.Small hiatal hernia The liver, spleen, pancreas, adrenal glands and kidneys are within normal limits. Cholecystectomy cli ps. No bowel obstruction, free air, free fluid or abscess. Prominent diverticulosis coli is present invol ving the sigmoid colon with moderate fecal retention. No diverticulitis findings. The appendix is nor mal. No evidence of significant lymphadenopathy. Small right inguinal hernia. Previous umbilical her cindy repair. Mild lumbar degenerative changes. IMPRESSION: No acute intra-abdominal or pelvic finding. Prominent sigmoid diverticulosis coli without diverticulitis. Small fat containing right inguinal hernia.
--- NOTE | 2022-05-25 08:19 | ER ---
Nurse's Notes [facility] Name: Lawrence Bustos Age: 66 yrs Sex: Male : 1955 Arrival Date: 05/25/2022 Time: 05:16 Bed 6 Private MD: Diagnosis: Inguinal hernia pain, Right lower abdominal pain Presentation: 05/25 05:30 Chief complaint: Patient states: right lower groin pain that radiates to RLQ. pt as6 reports it started a few hours ago and the pain woke him from his sleep. Coronavirus screen: At this time, the client does not indicate any symptoms associated with coronavirus-19. Ebola Screen: No symptoms or risks identified at this time. Initial Sepsis Screen: Does the patient meet any 2 criteria? No. Patient's initial sepsis screen is negative. Does the patient have a suspected source of infection? No. Patient's initial sepsis screen is negative. Risk Assessment: Do you want to hurt yourself or someone else? Patient reports no desire to harm self or others. Onset of symptoms was May 25, 2022. 05:30 Method Of Arrival: Wheelchair as6 05:30 Acuity: EDDIE 3 as6 Triage Assessment: 05:33 General: Appears ill, obese, Behavior is cooperative, restless. Pain: Complains of pain as6 in right femoral area Pain radiates to right lower quadrant Quality of pain is described as radiating, sharp, shooting, stabbing. Neuro: Level of Consciousness is awake, alert, obeys commands, Oriented to person, place, time, situation. Respiratory: Respiratory effort is even, unlabored. GI: Reports lower abdominal pain, nausea, vomiting. Derm: Skin is diaphoretic, Skin is pale. Historical: - Allergies: 05:32 No Known Allergies; as6 - Home Meds: 05:32 None [Active]; as6 - PMHx: 05:32 None; as6 - PSHx: 05:32 hernia; as6 - Immunization history:: Client reports receiving the 2nd dose of the Covid vaccine, moderna Flu vaccine is up to date. - Social history:: Smoking status: Patient denies any tobacco usage or history of. Screenin:34 [facility] ED Fall Risk Assessment (Adult) History of falling in the last 3 months, as6 including since admission No falls in past 3 months (0 pts) Confusion or Disorientation No (0 pts) Intoxicated or Sedated No (0 pts) Impaired Gait Yes (1 pt) Mobility Assist Device Used Yes (1 pt) Altered Elimination No (0 pt) Score/Fall Risk Level 0 - 2 = Low Risk. Abuse screen: Denies threats or abuse. Denies injuries from another. Nutritional screening: No deficits noted. Tuberculosis screening: No symptoms or risk factors identified. Assessment: 06:05 General: Appears uncomfortable, Behavior is calm, cooperative. Neuro: Level of kd3 Consciousness is awake, alert, obeys commands, Oriented to person, place, time, situation. Respiratory: Airway is patent Trachea midline Respiratory effort is even, unlabored, Respiratory pattern is regular, symmetrical. GI: Abdomen is obese, Reports lower abdominal pain, nausea. 07:05 Reassessment: Patient appears in no apparent distress at this time. No changes from kc6 previously documented assessment. Patient and/or family updated on plan of care and expected duration. Pain level reassessed. Patient is alert, oriented x 3, equal unlabored respirations, skin warm/dry/pink. 07:05 General: Appears in no apparent distress. uncomfortable, Behavior is calm, cooperative, kc6 appropriate for age. Pain: Complains of pain in right femoral area Pain does not radiate. Pain currently is 8 out of 10 on a pain scale. Quality of pain is described as sharp, Is continuous, Alleviated by nothing. Aggravated by increased activity, repositioning, Noted to be resistant to movement, Also complains of no other associated symptoms. Neuro: Aquino Agitation-Sedation Scale (RASS): 0 - Alert and Calm Level of Consciousness is awake, alert, obeys commands, Oriented to person, place, time, situation, Appropriate for age. Cardiovascular: Heart tones S1 S2 present Capillary refill < 3 seconds Rhythm is sinus rhythm. Respiratory: Airway is patent Trachea midline Respiratory effort is even, unlabored, Respiratory pattern is regular, symmetrical, Breath sounds are clear bilaterally. GI: Abdomen is flat, non-distended, obese, Bowel sounds present X 4 quads. Abd is soft and non tender X 4 quads. Reports lower abdominal pain, nausea, Patient currently denies diarrhea, vomiting. : No signs and/or symptoms were reported regarding the genitourinary system. : Urine is clear. EENT: No signs and/or symptoms were reported regarding the EENT system. Derm: No signs and/or symptoms reported regarding the dermatologic system. Skin is intact, Skin is pink, warm \T\ dry. Musculoskeletal: No signs and/or symptoms reported regarding the musculoskeletal system. Circulation, motion, and sensation intact. Capillary refill < 3 seconds, Range of motion: intact in all extremities. 08:05 Reassessment: Patient appears in no apparent distress at this time. No changes from kc6 previously documented assessment. Patient and/or family updated on plan of care and expected duration. Pain level reassessed. Patient is alert, oriented x 3, equal unlabored respirations, skin warm/dry/pink. Vital Signs: 05:30 BP 169 / 75; Pulse 62; Resp 17 S; Temp 98.0(O); Pulse Ox 95% on R/A; Weight 122.47 kg as6 (R); Height 6 ft. 0 in. (182.88 cm) (R); Pain 10/10; 06:04 BP 165 / 88; Pulse 62; Resp 19; Pulse Ox 92% on R/A; kd3 07:04 BP 155 / 67; Pulse 67; Resp 18 S; Pulse Ox 92% on R/A; kc6 08:04 BP 155 / 70; Pulse 60; Resp 20 S; Pulse Ox 90% on R/A; Pain 8/10; kc6 05:30 Body Mass Index 36.62 (122.47 kg, 182.88 cm) as6 ED Course: 05:16 Patient arrived in ED. jj6 05:21 Renetta Leger MD is Attending Physician. sd2 05:30 Steve Faust, JOSEFINA is Primary Nurse. as6 05:32 Triage completed. as6 05:33 Arm band placed on. as6 05:35 Placed in gown. Bed in low position. Call light in reach. Side rails up X2. Client as6 placed on continuous cardiac and pulse oximetry monitoring. NIBP monitoring applied. Warm blanket given. 05:40 Lipase Sent. as6 05:40 Troponin High Sensitivity Sent. as6 05:40 BNP Sent. as6 05:40 Magnesium Sent. as6 05:40 CMP Sent. as6 05:40 CBC with Diff Sent. as6 05:45 Inserted saline lock: 20 gauge in right antecubital area, using aseptic technique. pf1 06:18 Lab(s) recollected, by me, sent to lab. wm 06:18 CBC with Diff Sent. wm 06:56 CT Abd/Pelvis - IV Contrast Only In Process Unspecified. EDMS 07:04 Attending Physician role handed off by Renetta Leger MD jr11 07:04 Calvin Coe MD is Attending Physician. jr11 07:19 Urine Microscopic Only Sent. kc6 08:21 No provider procedures requiring assistance completed. kc6 08:33 IV discontinued, intact, bleeding controlled, No redness/swelling at site. Pressure kc6 dressing applied. Administered Medications: 05:50 Drug: NS 0.9% 1000 ml Route: IV; Rate: 1 bolus; Site: right antecubital; as6 07:20 Follow up: Response: No adverse reaction; IV Status: Completed infusion; IV Intake: kc6 1000ml 05:50 Drug: morphine 4 mg Route: IVP; Infused Over: 4 mins; Site: right antecubital; as6 07:20 Follow up: Response: No adverse reaction; Pain is unchanged, physician notified; RASS: kc6 Alert and Calm (0) 05:50 Drug: Zofran (Ondansetron) 4 mg Route: IVP; Site: right antecubital; as6 07:20 Follow up: Response: No adverse reaction; Nausea is decreased kc6 06:27 Drug: morphine 4 mg Route: IVP; Infused Over: 4 mins; Site: right antecubital; kd3 07:21 Follow up: Response: No adverse reaction; Pain is decreased; RASS: Alert and Calm (0) kc6 06:27 Drug: Ketorolac 15 mg Route: IVP; Site: right antecubital; kd3 07:21 Follow up: Response: No adverse reaction; Pain is decreased; RASS: Alert and Calm (0) kc6 07:48 Drug: Reglan (metoCLOPramide) 10 mg Route: IVP; Site: right antecubital; kc6 08:22 Follow up: Response: No adverse reaction; Nausea is decreased kc6 07:48 Drug: morphine 4 mg Route: IVP; Infused Over: 4 mins; Site: right antecubital; kc6 08:21 Follow up: Response: No adverse reaction; Pain is decreased; RASS: Alert and Calm (0) kc6 Medication: 06:06 VIS not applicable for this client. kd3 Intake: 07:20 IV: 1000ml; Total: 1000ml. kc6 Outcome: 08:18 Discharge ordered by . 11 08:21 Condition: stable kc6 08:32 Discharged to home via wheelchair, with significant other. kc6 08:32 Discharge instructions given to patient, Instructed on discharge instructions, follow up and referral plans. medication usage, Demonstrated understanding of instructions, follow-up care, medications, Prescriptions given X 1. 08:33 Patient left the ED. kc6 Signatures: Dispatcher [employer] EDMS Ira Moore Jennifer jj6 Steve Faust RN RN as6 Vandana Quintanilla RN RN kd3 Calvin Coe MD MD jr11 Renetta Leger MD MD sd2 Gwendolyn Gong RN RN kc6 Elham kerr RN RN pf1 Corrections: (The following items were deleted from the chart) 05:33 05:32 PMHx: right groin pain; as6 as6 05:33 05:32 PMHx: Nausea; as6 as6
--- NOTE | 2022-05-25 08:19 | EDPHYS ---
Physician Documentation [facility] Name: Lawrence Bustos Age: 66 yrs Sex: Male : 1955 Arrival Date: 05/25/2022 Time: 05:16 Bed 6 Private MD: ED Physician Calvin Coe HPI: 05/25 05:34 This 66 yrs old Male presents to ER via Wheelchair with complaints of RT Side Pain, sd2 Nausea/Vomiting. 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 Pt reports similar pain many years ago with a negative workup. Denies fever, diarrhea or urinary symptoms. . Historical: - Allergies: 05:32 No Known Allergies; as6 - Home Meds: 05:32 None [Active]; as6 - PMHx: 05:32 None; as6 - PSHx: 05:32 hernia; as6 - Immunization history:: Client reports receiving the 2nd dose of the Covid vaccine, moderna Flu vaccine is up to date. - Social history:: Smoking status: Patient denies any tobacco usage or history of. ROS: 05:34 Constitutional: Negative for fever, chills, and weight loss, Eyes: Negative for injury, sd2 pain, redness, and discharge, Cardiovascular: Negative for chest pain, palpitations, and edema, Respiratory: Negative for shortness of breath, cough, wheezing. Abdomen/GI: Positive for abdominal pain, nausea, vomiting, Negative for diarrhea. Back: Negative for injury and positive for pain, : Negative for dysuria, frequency or hematuria. MS/Extremity: Negative for injury and deformity, Skin: Negative for injury, rash, and discoloration, Neuro: Negative for headache, numbness and tingling. Exam: 05:34 Head/Face: Normocephalic, atraumatic. Eyes: EOMI, normal conjunctiva bilaterally sd2 Chest/axilla: Normal chest wall appearance and motion. Nontender with no deformity. Cardiovascular: Regular rate and rhythm with a normal S1 and S2. No gallops, murmurs, or rubs. 2+ distal pulses. Respiratory: Lungs have equal breath sounds bilaterally, clear to auscultation and percussion. No rales, rhonchi or wheezes noted. No increased work of breathing, no retractions or nasal flaring. Abdomen/GI: Soft, non-tender, with normal bowel sounds. No guarding or rebound. No evidence of tenderness throughout. No CVA tenderness. Back: No spinal tenderness. No costovertebral tenderness. Full range of motion. Male : Normal genitalia with no discharge or lesions. No scrotal swelling or edema. No inguinal LAD or hernia appreciated Skin: Warm, dry with normal turgor. Normal color with no rashes, no lesions, and no evidence of cellulitis. MS/ Extremity: Pulses equal, no cyanosis. Neurovascular intact. Full, normal range of motion. Ambulatory without difficulty. Psych: Awake, alert, with orientation to person, place and time. Behavior, mood, and affect are within normal limits. 05:34 Constitutional: The patient appears in no acute distress, alert, awake, well developed, uncomfortable. 05:34 ECG was reviewed by the Attending Physician. NSR, rate 60, no STEMI criteria Vital Signs: 05:30 BP 169 / 75; Pulse 62; Resp 17 S; Temp 98.0(O); Pulse Ox 95% on R/A; Weight 122.47 kg as6 (R); Height 6 ft. 0 in. (182.88 cm) (R); Pain 10/10; 06:04 BP 165 / 88; Pulse 62; Resp 19; Pulse Ox 92% on R/A; kd3 07:04 BP 155 / 67; Pulse 67; Resp 18 S; Pulse Ox 92% on R/A; kc6 08:04 BP 155 / 70; Pulse 60; Resp 20 S; Pulse Ox 90% on R/A; Pain 8/10; kc6 05:30 Body Mass Index 36.62 (122.47 kg, 182.88 cm) as6 MDM: 05:21 Patient medically screened. sd2 07:03 Transition of care: After a detail discussion of the patient's case, care is sd2 transferred to Calvin Coe MD. 08:16 Differential diagnosis: Nonspecific abd pain, strain on R inguinal hernia. Data jr11 reviewed: vital signs, nurses notes, radiologic studies. ED course: Pain controlled, to f/u surgery . 05/25 05:27 Order name: CBC with Diff; Complete Time: 06:40 sd2 05/25 05:27 Order name: CMP; Complete Time: 06:11 sd2 05/25 05:27 Order name: Magnesium; Complete Time: 06:11 sd2 05/25 05:27 Order name: Troponin High Sensitivity; Complete Time: 06:11 sd2 05/25 05:27 Order name: BNP; Complete Time: 06:11 sd2 05/25 05:27 Order name: Lipase; Complete Time: 06:11 sd2 05/25 05:27 Order name: Urine Microscopic Only; Complete Time: 07:32 sd2 05/25 05:27 Order name: CT Abd/Pelvis - IV Contrast Only; Complete Time: 08:15 sd2 05/25 07:19 Order name: Urine Dipstick-Ancillary; Complete Time: 07:28 EDMS 05/25 05:27 Order name: EKG - Nurse/Tech; Complete Time: 05:40 sd2 05/25 05:27 Order name: Urine Dipstick-Ancillary (obtain specimen); Complete Time: 07:19 sd2 Administered Medications: 05:50 Drug: NS 0.9% 1000 ml Route: IV; Rate: 1 bolus; Site: right antecubital; as6 07:20 Follow up: Response: No adverse reaction; IV Status: Completed infusion; IV Intake: kc6 1000ml 05:50 Drug: morphine 4 mg Route: IVP; Infused Over: 4 mins; Site: right antecubital; as6 07:20 Follow up: Response: No adverse reaction; Pain is unchanged, physician notified; RASS: kc6 Alert and Calm (0) 05:50 Drug: Zofran (Ondansetron) 4 mg Route: IVP; Site: right antecubital; as6 07:20 Follow up: Response: No adverse reaction; Nausea is decreased kc6 06:27 Drug: morphine 4 mg Route: IVP; Infused Over: 4 mins; Site: right antecubital; kd3 07:21 Follow up: Response: No adverse reaction; Pain is decreased; RASS: Alert and Calm (0) kc6 06:27 Drug: Ketorolac 15 mg Route: IVP; Site: right antecubital; kd3 07:21 Follow up: Response: No adverse reaction; Pain is decreased; RASS: Alert and Calm (0) kc6 07:48 Drug: Reglan (metoCLOPramide) 10 mg Route: IVP; Site: right antecubital; kc6 08:22 Follow up: Response: No adverse reaction; Nausea is decreased kc6 07:48 Drug: morphine 4 mg Route: IVP; Infused Over: 4 mins; Site: right antecubital; kc6 08:21 Follow up: Response: No adverse reaction; Pain is decreased; RASS: Alert and Calm (0) kc6 Disposition Summary: 05/25/22 08:18 Discharge Ordered Location: Home [facility] Condition: Fair jr11 Diagnosis - Inguinal hernia pain, Right lower abdominal pain jr11 Discharge Instructions: - Discharge Summary Sheet jr11 - Inguinal Hernia, Adult jr11 Forms: - Medication Reconciliation Form jr11 - Thank You Letter jr11 - Antibiotic Education jr11 - Prescription Opioid Use jr11 Prescriptions: - Ibuprofen 600 mg Oral Tablet - take 1 tablet by ORAL route every 6 hours As needed take with food; 20 tablet; jr11 Refills: 0, Product Selection Permitted Signatures: Dispatcher [employer] Steve Baker RN RN as6 Vandana Quintanilla RN RN kd3 Calvin Coe MD MD jr11 Renetta Leger MD MD sd2 Gwendolyn Gong RN RN kc6 Corrections: (The following items were deleted from the chart) 05:33 05:32 PMHx: right groin pain; as6 as6 05:33 05:32 PMHx: Nausea; as6 as6
[2022-05-25 08:42] VITALS: TEMP 98
[2022-05-25 08:59] VITALS: BP 155/70; O2SAT 90
--- NOTE | 2022-05-27 17:29 | EKG ---
Test Date: 2022-05-25 Test Time: 05:32:00 Histologic Technician: MEASUREMENT RESULTS: Intervals: Rate: 60 W[place]: 160 QRSD: 110 QT: 440 QTc: 440 [place]: P: 60 W[place]: 160 QRS: 26 T: 57 INTERPRETIVE STATEMENTS: Normal sinus rhythm Normal ECG Compared to ECG 09/05/2014 17:13:24 No significant changes Electronically Signed On 05-27-22 17:25:33 FILLING STATION ATTENDANT by Bayron Villalba
== END 2022-05-25 08:33 | disposition home or self-care (01) ==
LOC: ER 05:13
DX: K40.90 Unilateral inguinal hernia, without obstruction or gangrene, not specified as recurrent (principal); R11.2 Nausea with vomiting, unspecified
CPT/HCPCS: 96361; 93005; 85025; 36415; 83735; 84484; 83690; 80053; 83880; 74177; 96375; 96374; 99284; Q9967; J2765; J7030 ×2; J2405; 81003; 81015

== ENCOUNTER 2022-06-07 07:17 | Day surgery (SDC) | payer MEDICARE ==
--- NOTE | 2022-06-02 09:56 | RAD REPORT ---
EXAM DESCRIPTION: RAD - Chest Pa And Lat (2 Views) - 06/02/2022 8:59 am CLINICAL HISTORY: Pre op pending hernia surgery COMPARISON: Portable chest 09/05/2014, two view chest 05/25/2013 TECHNIQUE: Frontal and lateral views of the chest were obtained. FINDINGS: The lungs are clear. Interstitial pattern is similar to the comparison imaging. No hilar mass or lymphadenopathy. Heart size is normal and central vasculature is within normal limits. No pl eural effusion or pneumothorax seen. No acute bony finding noted. No aortic abnormality. No signif icant change from comparison study. IMPRESSION: No acute cardiopulmonary process.
[2022-06-07] MEDS ORDERED: CEFAZOLIN SODIUM 2 GM/VIAL ONE (07:36)
[2022-06-07] MEDS: Ringers Lactate 1,000 ML IV ONE (07:40)
[2022-06-07] MEDS ORDERED: FENTANYL CITR 100 MCG/2 ML ONE (08:33)
[2022-06-07] MEDS ORDERED: LIDOCAINE 2% MPF 5 ML VIAL ONE (08:33)
[2022-06-07] MEDS ORDERED: propofoL 200 MG/20 ML VIAL IV ONE (08:33)
[2022-06-07] MEDS ORDERED: ROCURONIUM 50 MG/5 ML VIAL IV ONE (08:58)
[2022-06-07] MEDS ORDERED: NS 0.9% VIAL 10 ML ONE (08:58)
[2022-06-07] MEDS ORDERED: LIDOCAINE JELLY 2%- 5 ML TUBE ONE (08:59)
[2022-06-07] MEDS ORDERED: KETOROLAC 30 MG/ML INJ ONE (09:16)
[2022-06-07] MEDS ORDERED: GLYCOPYRROLATE 0.2 MG/ML SYR ONE (09:42)
[2022-06-07] MEDS ORDERED: ONDANSETRON 4 MG/2 ML VIAL ONE (09:42)
[2022-06-07] MEDS ORDERED: NEOSTIGMINE 1 MG/ML -10 ML VIAL ONE (09:42)
[2022-06-07] MEDS ORDERED: Mastisol Adhesive Liq ONE (09:43)
--- NOTE | 2022-06-07 09:55 | P.OP ---
Date of Service: 06/07/22 Preop diagnosis: Right inguinal hernia Postop diagnosis: Same Procedure performed: Repair right inguinal hernia Surgeon: Sacha Russo MD Malted Milk Mixer: Nery CHAPMAN Estimated blood loss: Minimal Specimen: Cord lipoma Findings: As above Anesthesia: General Complications: None Drains: None Fluids and blood products: Nonapplicable Disposition: Recovery room Operative note: Patient brought to the OR and placed in supine position. General anesthesia begun. Patient prepped and draped in the usual sterile fashion. Marcaine 0.5% infiltrated in the right groin in a field block fashion. 15 blade used to make a 4 cm incision between the pubic tubercle and the anterior iliac superior spine. Subcutaneous tissue divided. Yvonne's fascia identified and divided. Aponeurosis identified which was attenuated. Cord structures and ilioinguinal nerve identified and mobilized at the pubic tubercle. Ilioinguinal nerve retracted out of the field of dissection. Cord skeletonized. A large cord lipoma present but no indirect sac identified. Lipoma excised at the base with 2-0 Prolene suture ligature and freehand tie. Specimen sent to pathology. Marlex mesh plug placed in the internal ring and secured with VersaTack stapler. Onlay mesh placed on the inguinal floor and secured with VersaTack staplemedially to the pubic tubercle, superior to the conjoined tendon, laterally to each other and inferiorly to the shelving edge. Cord structures ileoinguinal nerve placed back in anatomic location Yvonne fascia closed with 3-0 chromic and 3-0 chromic used to approximate subcutaneous tissue in close skin. Sterile dressing applied. Patient awakened and taken to recovery room in good general condition. CC: Dr. Craig's office
[2022-06-07] MEDS ORDERED: HYDROCODONE/APAP 7.5/325 MG TAB PO PRN (09:56)
[2022-06-07] MEDS ORDERED: HYDROCODONE/APAP 7.5/325 MG TAB ONE (10:57)
[2022-06-07 11:11] VITALS: BP 153/82; TEMP 97.4; O2SAT 99
== END 2022-06-07 12:00 | disposition home or self-care (01) ==
LOC: OR 07:17
PROVIDERS: ATTEND Surgery
PROC: 0YU50JZ Supplement Right Inguinal Region with Synthetic Substitute, Open Approach (ICD-10-PCS; principal; 2022-06-07 09:00)
DX: K40.90 Unilateral inguinal hernia, without obstruction or gangrene, not specified as recurrent (principal)
CPT/HCPCS: 88302; 71046; 49505; J2704; J2710; J2001; J3010; A4216; J7120; J2405